=== PATIENT | male | born 1940 | race Caucasian/White ===

== ENCOUNTER 2022-09-12 07:45 | Outpatient (CLI) | payer MEDICARE, SELFPAY | END 2022-09-12 07:46 | disposition home or self-care (01) | LOC: NFLDREF 11:41 | PROVIDERS: PCP Family Medicine; Referring Provider Family Medicine; Visit Provider Family Medicine | DX: Z00.00 Encounter for general adult medical examination without abnormal findings (principal); E78.5 Hyperlipidemia, unspecified; I10 Essential (primary) hypertension; Z12.5 Encounter for screening for malignant neoplasm of prostate | CPT/HCPCS: 80053; 80061; 84153 ==

== ENCOUNTER 2023-10-09 07:36 | Outpatient (CLI) | payer MEDICARE, SELFPAY | END 2023-10-09 07:37 | disposition home or self-care (01) | LOC: NFLDREF 10-13 00:37 | PROVIDERS: PCP Family Medicine; Referring Provider Family Medicine; Visit Provider Family Medicine | DX: E78.5 Hyperlipidemia, unspecified (principal); I10 Essential (primary) hypertension; Z12.5 Encounter for screening for malignant neoplasm of prostate | CPT/HCPCS: 80053; 80061; G0103 ==

== ENCOUNTER 2023-12-18 07:09 | Outpatient (CLI) | payer MEDICARE, SELFPAY ==
--- NOTE | 2023-12-18 09:29 | W.ANESCHARGE ---
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
--- NOTE | 2023-12-18 09:39 | W.ANESCHARGE ---
Anesthesia Charges Start Date/Time Anesthesia Start Date: 12/18/23 Anesthesia Start Time: 08:08 Stop Date/Time Anesthesia Stop Date: 12/18/23 Anesthesia Stop Time: 09:25 Summary Extremes of Age - Over 70 or under 1: MDA
== END 2023-12-18 07:10 | disposition home or self-care (01) ==
LOC: OP CLINIC 07:10
PROVIDERS: PCP Family Medicine; Visit Provider Surgery
DX: Z12.11 Encounter for screening for malignant neoplasm of colon (principal); D12.3 Benign neoplasm of transverse colon; D49.0 Neoplasm of unspecified behavior of digestive system; K56.690 Other partial intestinal obstruction; K57.30 Diverticulosis of large intestine without perforation or abscess without bleeding; Z86.0100 Personal history of colon polyps, unspecified
CPT/HCPCS: 00811; 45380; 45381; 45385; 88305; 99100; J2704

== ENCOUNTER 2023-12-25 07:30 | Outpatient (CLI) | payer MEDICARE, SELFPAY ==
--- NOTE | 2023-12-25 08:00 | CRLHL7_ITS ---
For Patients: As a result of the Century Cures Act, medical imaging exams and procedure reports are released immediately into your electronic medical record. You may view this report before your referring provider. If you have questions, please contact your health care provider. CT CHEST, ABDOMEN AND PELVIS WITH CONTRAST, 12/25/2023 INDICATION: New sigmoid cancer. TECHNIQUE: Contrast-enhanced CT of the chest, abdomen and pelvis. 96 cc nonionic Isovue-370 administered. COMPARISON: None. FINDINGS: CT chest: Nearly 7 mm subpleural pulmonary nodule lateral left lower lobe of the lung image 87 series 3, nonspecific. Minimal ground-glass opacity subpleural posterior right lower lobe of the lung image 56 series 3 likely postinfectious or postinflammatory. Few calcified pleural plaques bilaterally, left more so than right. No thoracic lymphadenopathy. Vascular calcification within the thoracic aorta and coronary artery distribution. CT abdomen and pelvis: Small esophageal hiatal hernia. The liver is negative for masses or biliary dilatation. No splenomegaly. The pancreas and adrenal glands are unremarkable. Probable tiny stone in the gallbladder, image 163 series 2. Renal cysts bilaterally without solid masses or obstruction. No renal stone. Dense vascular calcification within the abdominal aorta and iliac arteries. Normal appendix. Biopsy clips ascending colon. Enhancing thick-walled sigmoid colonic mass left lower quadrant image 209 series 2. Adjacent, somewhat suspicious 1 cm lymph node image 208 series 2. No ascites. No bowel obstruction. Enlarged prostate gland. The seminal vesicles are unremarkable. Mildly thick-walled urinary bladder. Both inguinal regions are unremarkable. The included skeleton is negative for acute fractures. No lytic or blastic lesions. Scattered hypertrophic and degenerative change of the spine. IMPRESSION: 1. Sigmoid colonic mass with a 1 cm regional lymph node. 2. 6-7 mm subpleural pulmonary nodule lateral left lower lobe of the lung is indeterminate. 3. The liver is negative for masses or biliary dilatation. There is minor focal fatty infiltration along the falciform ligament. 4. Tiny calcified gallstone. Renal cysts. Dense arterial vascular calcification in the chest, abdomen and pelvis. 5. Prostatic enlargement. Please note that all CT scans at this facility use dose modulation, iterative reconstruction and/or weight-based dosing when appropriate to reduce radiation dose to as low as reasonably achievable. Basil Bansal M.D. Diagnostic/Nuclear Medicine Radiologist [email or web address] Transcribed: 11:33 am DW/Dictated by: Basil Bansal MD @ 12/25/2023 11:13:00 AM (Electronically Signed)
[2023-12-25 08:03] LABS: Creatinine* 0.9 mg/dL (0.5-1.5); Estimated Glomerular Filt Rate 86 ml/min
== END 2023-12-25 07:31 | disposition home or self-care (01) ==
LOC: CT 07:32
PROVIDERS: PCP Family Medicine; Visit Provider Surgery
DX: K63.89 Other specified diseases of intestine (principal); R22.2 Localized swelling, mass and lump, trunk; R91.8 Other nonspecific abnormal finding of lung field; K80.20 Calculus of gallbladder without cholecystitis without obstruction; N40.0 Benign prostatic hyperplasia without lower urinary tract symptoms
CPT/HCPCS: 36415; 71260; 74177; 82565; Q9967

== ENCOUNTER 2023-12-28 13:12 | Outpatient (CLI) | payer MEDICARE, SELFPAY | END 2023-12-28 13:13 | disposition home or self-care (01) | LOC: NFLDREF 13:13 | PROVIDERS: PCP Family Medicine; Visit Provider Surgery | DX: D12.5 Benign neoplasm of sigmoid colon | CPT/HCPCS: 82378 ==

== ENCOUNTER 2024-01-18 14:59 | Outpatient (CLI) | payer MEDICARE, SELFPAY ==
--- NOTE | 2024-01-18 15:30 | PE_ITS ---
[facility] [address] [facility] [address] Phone:?[phone] Fax:?[phone] Referring Physician Information: Digna Vang M.D. [address] [facility] [address] Phone:?[phone] Fax:?[phone] Patient:?Vladimir Alegria D.O.B:?1940 Sex:?Male Phone:?[phone] [facility] MRN:?[id number] Exam Date:?01/18/2024 EXAM:?PET EYES TO THIGHS, CANCER INITIAL STAGING CLINICAL INFORMATION: Colorectal cancer, sigmoid colon, presurgery TECHNICAL INFORMATION: Helical acquisition of data was obtained from the orbits to the upper thighs with reconstruction of 3.75 mm thick images at 3.[address] data was used for attenuation correction. PET scanning was performed through the same anatomic range 60 minutes following administration of 12.92 mCi of 18-FDG delivered intravenously. The patient's glucose at the time of the injection was 70 mg/dL. PET, CT and PET/CT fusion images are interpreted using a computer viewing workstation. PET, CT and PET/CT fusion images were archived and saved in the patient's permanent medical record. COMPARISON: CT chest, abdomen and pelvis 12/25/2023 INTERPRETATION: Mediastinal blood pool activity: 2.71 Background liver parenchymal uptake: 3.35 Head and Neck: There are no abnormal hypermetabolic foci within the head or neck. There is physiologic uptake in the intracranial soft tissues. Chest: There are no abnormal hypermetabolic foci within the chest. No lymphadenopathy detected. A stable 6 mm nodule in the left lower lobe (series 202 image 144). No associated FDG avidity. Stable 3 mm nodule in the left upper lobe (series 202 image 90). No new or enlarging lung nodules. Similar subpleural reticulation in the superior segment right lower lobe. Scattered bilateral calcified pleural plaque, left greater than right. Coronary artery atherosclerosis. Atherosclerosis of the thoracic aorta. Abdomen and Pelvis: Focal soft tissue fullness in the proximal sigmoid colon measuring 4.0 x 3.3 cm (series 202 image 234) with associated FDG avidity and an SUV max of 22.99 There is physiologic excretion of radiotracer in the urine and bowel. A few more discrete foci of uptake in the hepatic flexure colon (fused image 29) and ascending colon (fused image 215). The focus of uptake in the ascending colon appears to be associated with a biopsy clip with an SUV max of 7.63. There is misregistration artifact in the region of the inferior liver and the focus of uptake in the right upper quadrant region is favored to be within the hepatic flexure colon rather than the adjacent liver. Additionally, no lesion is visualized in the region on the comparison CT abdomen/pelvis. This focus has an SUV max of 7.56 and is indeterminate, possibly related to recent polypectomy or diverticula. No discrete mass is visualized. No abdominal or pelvic lymphadenopathy. Bilateral renal cysts measuring up to 4.3 cm in the superior pole of the right kidney. A 2 mm calyceal stone in the lower pole of the right kidney. No hydronephrosis. Aortoiliac atherosclerosis. Prostatomegaly. Colonic diverticulosis. Skeleton, Musculature, and Integument: No abnormal hypermetabolic foci within the skeleton. No emily osteoblastic or osteolytic disease. CONCLUSION: * A 4 cm hypermetabolic mass in the proximal sigmoid colon which is compatible patient's known primary neoplasm. * No definite evidence of metastatic disease. * A few stable lung nodules measuring up to 6 mm. Attention on follow-up imaging. * A few foci of uptake in the ascending and hepatic flexure colon. Findings may be related to provided history of recent polypectomy or small diverticula in the region. Correlate with colonoscopy findings. As conservative management, a short interval follow-up CT abdomen/pelvis could be considered in 3 months to ensure stability. Electronically signed on 01/23/2024 9:06:00 AM by Danny Ramirez D.O
== END 2024-01-18 15:00 | disposition home or self-care (01) ==
LOC: RAD 15:00
PROVIDERS: PCP Family Medicine; Visit Provider Surgery
DX: C18.7 Malignant neoplasm of sigmoid colon (principal); R91.1 Solitary pulmonary nodule
CPT/HCPCS: 78815; A9552

== ENCOUNTER 2024-01-29 08:54 | Outpatient (CLI) | payer MEDICARE, SELFPAY | END 2024-01-29 08:55 | disposition home or self-care (01) | LOC: NFLDREF 08:56 | PROVIDERS: PCP Family Medicine; Visit Provider Family Medicine | DX: I10 Essential (primary) hypertension (principal); Z01.818 Encounter for other preprocedural examination | CPT/HCPCS: 80048 ==

== ENCOUNTER 2024-01-30 06:13 | Inpatient (IN) | payer MEDICARE, SELFPAY ==
[2024-01-30] VITALS (24 sets, daily range): BP systolic 122–151; BP diastolic 55–85; PULSE 52–98; RESP 14–18; TEMP 36.3–36.8; O2SAT 92–98; BMI 27.1
[2024-01-30] MEDS: LACTATED RINGERS 1000 ML 1,000 ML 100 ML IV (07:02)
[2024-01-30] MEDS: SODIUM CHLORIDE 0.9 % (FLUSH) 10 ML SYRINGE IVF (07:02)
--- NOTE | 2024-01-30 07:42 | W.PM.H&PU ---
History & Physical Update History & Physical Update H&P Reviewed and patient assessed: No changes noted
[2024-01-30] MEDS: ERTAPENEM 1 GM inj IVPB (07:55)
[2024-01-30] MEDS: BUPIVACAINE 0.25% 30 ML INJECTION (08:51)
--- NOTE | 2024-01-30 09:13 | W.ANESCHARGE ---
Anesthesia Charges Start Date/Time Anesthesia Start Date: 01/30/24 Anesthesia Start Time: 07:42 Stop Date/Time Anesthesia Stop Date: 01/30/24 Anesthesia Stop Time: 13:27 Summary Extremes of Age - Over 70 or under 1: MDA
--- NOTE | 2024-01-30 09:15 | P.NB_ITS ---
Nerve Block Nerve Block Time Seen by Provider: 07:52 Date Seen: 01/30/24 Type of block requested by surgeon for post-operative analgesia: TAP Side: bilateral Time out performed: Yes Verification of patient name: Yes Verification of date of : Yes Site marking: site marked Name of person performing procedure: Que Continuous monitoring Was continuous monitoring of O2 sat, B/P, hand outside cutter, recorded every 15 minutes?: Yes Procedure Checklist: sterile prep, needles and gloves Ultrasound guided. Images saved: Yes Medications given in 5ml increments after negative aspiration: Marcaine %: 0.25 mL: 30 Needle gauge: 20 and Exparel mL: 10 Patient tolerated procedure well: Yes Additional comments: Needle noted between internal oblique and transversus abdominus. Local spread visualized Block Charges Block Charge (with Pro Fee): TAP Bilateral Use of Ultrasound Machine for Block: Yes- US Guidance/pain block
--- NOTE | 2024-01-30 12:15 | SUR.OPER ---
patient's updated on progress of the procedure and procedure going well by charge nurse in lobby area.
--- NOTE | 2024-01-30 13:31 | W.ANESCHARGE ---
Anesthesia Charges Start Date/Time Anesthesia Start Date: 01/30/24 Anesthesia Start Time: 07:42 Stop Date/Time Anesthesia Stop Date: 01/30/24 Anesthesia Stop Time: 13:27
--- NOTE | 2024-01-30 13:48 | PM.GSPRC ---
Operative Note Date of procedure: 01/30/24 Pre-op diagnosis: 1. 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 Post-op diagnosis: Same Type of Procedure: 1. Laparoscopic left hemicolectomy. 2. Laparoscopic mobilization of the splenic flexure. 3. I SPY injection. Indications: 83-year-old male underwent a colonoscopy and was found to have a partially obstructing proximal sigmoid mass. This was biopsied on biopsy returned as tubulovillous adenoma with high-grade dysplasia. Appearance of the mass was concerning for adenocarcinoma. Patient was then seen by my surgical partner in clinic of laparoscopic colectomy was recommended. See her note for more details. Procedure Description: After discussing the risks and benefits of the procedure, the patient signed informed consent.? The operative site was marked and the patient was brought to the operating room and placed on the operating table in supine position.? Patient was intubated by Anesthesia. He was placed in the modified lithotomy position with all pressure points padded. TAP blocks were administered by Anesthesia. Thakur catheter was placed under sterile conditions.? The operative site was then prepped and draped in the usual sterile fashion.? A time-out was then performed. The abdomen was entered in the left upper quadrant using a Visiport technique. The abdominal wall layers were visualized and the abdomen was entered. The abdomen was insufflated with carbon dioxide. No intra-abdominal injury was noted in the left upper quadrant. We then placed additional laparoscopic ports under direct visualization. A 5 mm port was placed above the umbilicus, slightly to the right of the umbilicus, and 12 mm port was placed in the right lower quadrant. The patient was placed in the Trendelenburg position with the left side up. The sigmoid colon was identified And tattoo was identified In the proximal sigmoid colon. A firm mass was palpable just proximal to the tattoo, and was in the descending colon. We first proceeded with medial mesenteric dissection. This was done with the Harmonic scalpel. During this part of the procedure I assisted with retraction and mobilization. The inferior mesenteric artery was identified and we clearly identified the left colic branch at its takeoff from the inferior mesenteric artery. Two branches were identified immediately after the takeoff from DANITZA. Since we did not identify the left ureter at this point, decision was made to proceed with lateral dissection. The adhesions of sigmoid colon to the lateral abdominal wall were taken down with harmonic scalpel. This was carried distally towards the pelvis and proximally towards the spleen. At this point the left ureter was identified and care was taken not to injure it. During this part of the procedure I assisted with retraction and mobilization. The dissection was carried towards the spleen and we proceeded with mobilization of splenic flexure. The splenic flexure of the large intestine was mobilized with Harmonic scalpel. The omentum overlying the splenic flexure was divided with Harmonic scalpel And this allowed us to reflect the splenic flexure and transverse colon caudally. This dissection was carried towards the stomach by dividing the gastrocolic ligament, and extended to the proximal transverse colon. When the descending colon and the splenic flexure were mobile to allow for tension-free anastomosis, we then turned our attention to the sigmoid colon. The sigmoid colon was redundant. The Proxima sigmoid colon mesentery was further skeletonized with Harmonic scalpel. The vascular pedicle that was previously identified was again seen and both branches of the left colic artery just distal to its takeoff from the inferior mesenteric artery were diivided with Endo-ZAKIA stapler. Left colic vein was identified just cranial to the divided artery. This was skeletonized with the Harmonic scalpel and divided with vascular load of Endo-ZAKIA stapler. During this part of the dissection, I assisted with visualization and retraction. The staple lines were examined, and no bleeding was seen. Given the location of the tumor in the descending colon and redundant sigmoid colon, we elected to proceed with left hemicolectomy through a left paramedian incision and end to end anastomosis. The laparoscopic instruments were removed from the abdomen. The abdomen was deflated. A left paramedian skin incision was made just lateral to the umbilicus. This was done with a scalpel. Subcutaneous fat was divided with cautery until anterior fascia was identified. Anterior fascia was divided with cautery as well. Rectus muscle was divided with cautery. Bleeding was seen from the muscle fibers, and this was controlled with cautery. The midline peritoneum was then grasped and the abdomen was entered with cautery. This peritoneal incision was then extended laterally and medially. During this part of the procedure, I assisted with retraction and visualization. A medium size Baudilio retractor was placed into the incision. The previously grasped decent colon was identified, and exteriorized. The descending colon was very mobile. Colonic mesentery was then further divided to skeletonize the proximal and distal ends of the colon elected for division and anastomosis. We then used indocyanine green injection to verify good blood flow to the proximal colon and distal colon. The perfused colonic demarcation was clearly seen. The distal colon at the level of the proximal sigmoid was then clamped with a Elizabeth clamp and divided with a scalpel. The open end of the sigmoid colon was then grasped with Babcocks. The proximal end of the colon at the level of proximal descending at the splenic flexure was also grasped with kocker clamp. The colon was divided with a scalpel. The specimen was passed off the field, and sent to pathology with epiploic fat that was previously excised adjacent to the descending colon. The open end of the descending colon was grasped with [place] clamps as well. No stool was noted in the lumen, and no stool was spilled into the incision. We then proceeded with a hand-sewn end-to-end colo-colonic anastomosis. We made sure that colonic mesentery was not twisted. The serosa of the back wall of the open ends of the colon was reapproximated with silk Lembert sutures. The mucosa was then closed with two running 3-0 Vicryl sutures. The anterior wall of the colon was then reapproximated with silk Lembert sutures. The mesenteric defect was not closed. During this part of the procedure I assisted with retraction and visualization. The anastomosis was patent to palpation and was well perfused. No bleeding was identified near anastomosis. The anastomosis was then placed into the abdomen. The Baudilio retractor was removed. Previously placed towels that were covering all laparoscopic instruments were also removed. Surgeons and assistants changed gloves. We then proceeded with using clean tray for incisional closure. The peritoneum of paramedian incision was then closed with a running Vicryl suture. The fascia of paramedian incision was closed with 2 running PDS sutures. During this part of procedure I assisted with retraction and visualization. The abdomen was then insufflated with carbon dioxide. Anastomosis was perfused and lying on the left side of the abdomen. The mesentery was not twisted. No bleeding was identified in the surgical field. The right lower quadrant 12 mm port fascia was closed with 0-0 Vicryl suture using Theo-Yahir needle. All laparoscopic ports were removed under direct visualization. The subcutaneous fat of the paramedian incision was then reapproximated in layers with interrupted Vicryl sutures. The skin of all incisions was closed with 4-0 Monocryl stitch. Steri-Strips and sterile dressings were placed over the incisions. All counts were correct at the end of the case. ? The patient was then woken and transported to the recovery area in stable condition. ? The patient tolerated the procedure well. Findings: Tattoo distal to tumor was identified and was in the proximal sigmoid colon. A firm mass was palpable in the descending colon. The descending colon was removed and hand-sewn end-to-end colocolonic anastomosis was created. Anesthesia: GETA Surgeon: Digna Vang MD Co-Surgeon: Farrah Arevalo MD Estimated blood loss (mL): 25 Additional Specimen Information: 1. Left colon. Condition: stable Disposition: PACU
--- NOTE | 2024-01-30 14:02 | PM.GSPRC ---
Operative Note Date of procedure: 01/30/24 Pre-op diagnosis: Advanced tubulovillous adenoma, left colon Post-op diagnosis: Same Type of Procedure: 1. Laparoscopic left hemicolectomy 2. Laparoscopic mobilization of splenic flexure 3. ICG ispy evaluation of perfusion Indications: Patient is an 83-year-old male who underwent a screening colonoscopy with evidence of a partially obstructing mass in the proximal sigmoid. 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 A preoperative CT chest/abdomen/pelvis were obtained, as well as a PET-CT with no clear evidence of metastatic disease. After discussing different treatment regimens with the patient, as well as risks and benefits of surgery the patient has decided to pursue surgical intervention. Risks included but was not limited to: Bleeding, infection, risk of damage to surrounding structures, possible need for additional procedures, possible need to convert to an open operation and postoperative complications such as pneumonia, pulmonary emboli or AR. All questions and concerns were addressed with the patient agreeing to proceed. Procedure Description: After discussing the risks and benefits of the procedure, the patient signed informed consent.? The operative site was marked and the patient was brought to the operating room and placed on the operating table in semi-lithotomy position, arms tucked.? Care was taken to pad the patient's pressure points.?? The patient was then intubated by anesthesia.?? Bilateral tap blocks were performed by Anesthesia. A Thakur was placed under sterile conditions. The operative site was then prepped and draped in the usual sterile fashion.? A time-out was then performed. A 5 mm Visiport was used to enter the abdomen in the left upper quadrant. The abdomen was then insufflated with CO2 and briefly surveyed with no evidence of injury. Additional ports were placed just above the umbilicus, as well as 2 within the right lower quadrant under direct visualization. The patient was then placed Trendelenburg with left side up. The small bowel was gently moved to the right side. The sigmoid colon had evidence of circumferential tattoo. There were some adhesions to the lateral abdominal wall at this area. With palpation the colon mass was easily identified approximately 5 cm proximal to the tattooed area. Dr. Arevalo assisted with retraction of the colon towards the anterior wall, putting the mesentery under traction. I used the Harmonic device to score the peritoneum of the sigmoid mesentery and carried the dissection caudad and cephalad. Care was taken to dissect through the mesenteric fat until a vascular pedicle was identified coming off of the aorta and branching distally towards the specimen. This was identified as the DANITZA, left colic and sigmoid arteries. Prior to transection we continued our dissection laterally. We took down the adhesions of the sigmoid from the lateral abdominal wall. The colon was retracted medially by Dr. Arevalo while I continued dissecting the specimen away from the abdominal wall. The left ureter was easily identified during this portion of the procedure and care was taken not to injure it. A small arterial bleed was identified just inferior to the ureter, this was controlled with a 5 mm clip. At this point the previous medial dissection was identified. The left colic artery and sigmoid artery were seen going directly into the specimen. Two 30mm vascular staple loads were used to individually ligate the arteries. A large vein was also identified running posterior to the left colic and was transected in a similar fashion. The white line of Toldt was then incised and dissection carried up towards the splenic flexure. The patient was placed in reverse Trendelenburg position. The splenic colic ligaments were carefully dissected free and ligated with the Harmonic device, taking care not to place traction on the spleen. The overlying omentum of the transverse colon was incised and we entered into the lesser sac. This was opened further to mid transverse. At the completion of this dissection the colon was very mobile and able to lay into the pelvis without tension. A grasper was placed just distal to the tumor on a piece of epiploic fat. At this point we converted to the open portion of the procedure in order to perform an extracorporeal anastomosis. A left lower quadrant transverse incision was made with a 15 blade scalpel. Dissection was carried through subcutaneous tissue with cautery. The anterior fascia was identified and incised. The underlying muscle was transected with cautery. There was a small amount of bleeding from the muscle edges, which was controlled with cautery. The peritoneum was sharply incised and the incision extended medial and lateral. A medium Baudilio wound retractor was placed within the incision. The underlying colon with the grasper in place was identified and grabbed with Babcocks. The laparoscopic grasper was removed and all laparoscopic equipment covered with towels or placed on the back table. The colon was easily externalized through the left lower quadrant opening. An area was identified proximal and distal to the palpated tumor for transection. The colon was dissected free of fat from these areas. Some additional ligation of the mesentery was needed, which was done with the harmonic device and vicryl ties for larger vessels. Prior to transection of the colon a laparoscopic iSPY camera was brought onto the field. Anesthesia injected IV indocyanine green and we were able to identify perfusion of the colon. The sites on the left colon that were previously identified for transection were well perfused. A large Elizabeth was then placed proximal and distal on the colon, ensuring adequate margins from the tumor. The colon was sharply incised and grasped with Ashley's. The specimen was then able to be passed off to the back table to be sent to pathology. The distal and proximal ends of the colon wer lined up, for an end-to-end anastomosis. 3-0 silk Lembert stitches were placed posteriorly between the 2 specimens, lining up the mesenteric ends. Care was taken to ensure no twisting of the mesentery. Once the posterior colonic wall of the specimen was lined up the mucosa was brought together with 2 running 3 0 Vicryl sutures. 3-0 silk Lembert sutures were then placed circumferentially, ensuring a 2 layer closure. The lumen was palpated and patent. The mesenteric defect was left open. The specimen was then placed back into the abdomen. All dirty equipment was removed off of the operative field at this point. The peritoneum was closed with running 3-0 Vicryl. The anterior fascia was closed with 2 running 0 PDS sutures. A moist gauze was placed within the incision and the abdomen was insufflated with CO2. Laparoscopic equipment was brought back into the operative field. The anastomosis was identified. The mesentery was not twisted and everything appeared well perfused. No evidence of bleeding. The 12 mm port was closed with an 0 Vicryl stitch via the Theo-Yahir. Laparoscopic ports were removed. The port incisions were closed with 4-0 Monocryl. The left lower quadrant incision was closed in layers with interrupted 3 0 Vicryl and running 4-0 Monocryl suture. Sterile dressings were then applied. ? The patient was then woken and transported to the recovery area in stable condition. ? The patient tolerated the procedure well. Findings: Left colonic mass. Anesthesia: GETA Surgeon: Digna Vang MD Estimated blood loss (mL): 25 Additional Specimen Information: Left colon Condition: stable Disposition: PACU
[2024-01-30] MEDS: 0.9 % SODIUM CHLORIDE 1000 ml 1,000 ML 125 ML IV (18:18)
--- NOTE | 2024-01-30 18:56 | PC.NURSE ---
end of shift. pt has been pleasant. abd pain has been 1-3 and he did not want anything for it so far. IV is patent. plexis are on. IS to 1500. waterman is patent. he is drinking and eating. he as lap incision and a larger incision that is steri stripped. active ice to the abd. will monitor.
[2024-01-31] VITALS (7 sets, daily range): BP systolic 136–163; BP diastolic 65–88; PULSE 65–72; RESP 16–18; TEMP 36.6–36.8; O2SAT 92–94
[2024-01-31] MEDS: 0.9 % SODIUM CHLORIDE 1000 ml 1,000 ML 125 ML IV (02:00)
[2024-01-31 06:52] LABS: Basophils Percent Auto 0.1 % (0.0-3.0); Hematocrit 43.5 % (37.0-53.0); Hemoglobin* 14.4 gm/dL (13.5-17.5); Immature Granulocytes Pct Auto 0.2 %; Lymphocytes Percent Auto 8.9 % (20-44); Mean Corpuscular HGB Conc 33 gm/dL (32-36); Mean Corpuscular Hemoglobin 32 pg (26-34); Mean Corpuscular Volume 96 fL (80-100); Monocytes Percent Auto 10.6 % (0.0-11.0); Neutrophils Percent Auto 80.2 % (42.0-72.0); Platelet Count* 243 K/uL (140-440); RDW Coefficient of Variation % 12.3 % (11.5-15.5); Red Blood Count 4.54 m/uL (4.30-5.90); White Blood Count* 11.14 K/uL (4.50-11.00)
--- NOTE | 2024-01-31 06:57 | PC.NURSE ---
Pt alert, oriented and vitally stable. Pt has had no pain throughout shift. 3 lap sites and 1 (3-4 inch) incision, with scant amounts of blood, otherwise dry and intact. Ice pack to op sites and pillow ready to brace as needed. Pt states flatus present, bowel sounds active. Pt appears to be resting comfortably, call light within reach.?
[2024-01-31 07:13] LABS: Chloride* 106 mmol/L (96-114); Potassium* 3.9 mmol/L (3.6-5.1); Sodium* 137 mmol/L (135-149)
[2024-01-31 07:16] LABS: Anion Gap 6 mEq/L (7-15); Blood Urea Nitrogen* 16 mg/dL (7-30); Calcium* 8.4 mg/dL (8.4-10.6); Carbon Dioxide* 25 mmol/L (20-32); Creatinine* 0.8 mg/dL (0.5-1.5); Estimated Glomerular Filt Rate 89 ml/min; Glucose* 100 mg/dL (60-115)
[2024-01-31 07:18] LABS: Slide Review Reflex No
--- NOTE | 2024-01-31 09:23 | PM.GSPN ---
Subjective Subjective Date Seen: 01/31/24 Interval history: Patient is doing well this morning. Minimal pain. Has not yet gotten up to walk the halls. Is passing flatus. Also reports frequent hiccups and burping. Has been taking clear liquids without nausea or vomiting. Has been feeling hungry this morning. No concerns. Exam Narrative: Exam Narrative: Gen: aler and oriented, NAD Abd: soft, non tender, incisions with steri strips in place c/d/i. Const: Vital Signs, click to edit/add: Vital Signs - 24 hr 01/30/24 13:23 01/30/24 13:30 01/30/24 13:35 Temperature 97.4 F L Pulse Rate 63 65 61 Pulse Rate [Pulse Oximeter] Respiratory Rate 18 16 18 Blood Pressure 136/63 137/60 139/64 Blood Pressure [Ri ght Arm] Pulse Oximetry 94 93 93 Oxygen Delivery Me thod Room Air Room Air Room Air 01/30/24 13:40 01/30/24 13:45 01/30/24 13:50 Temperature 97.5 F L Pulse Rate 63 61 61 Pulse Rate [Pulse Oximeter] Respiratory Rate 16 18 14 Blood Pressure 122/85 127/63 133/67 Blood Pressure [Ri ght Arm] Pulse Oximetry 95 95 95 Oxygen Delivery Mi thod Room Air Room Air Room Air 01/30/24 13:55 01/30/24 14:00 01/30/24 14:02 Temperature 97.3 F L 97.3 F L 97.3 F L Pulse Rate 59 L 59 L Pulse Rate [Pulse Oximeter] 61 Respiratory Rate 16 16 16 Blood Pressure 134/62 134/62 Blood Pressure [Ri ght Arm] 131/68 Pulse Oximetry 94 94 94 Oxygen Delivery Mi thod Room Air Room Air Room Air 01/30/24 14:02 01/30/24 14:15 01/30/24 14:21 Temperature 97.3 F L 97.3 F L Pulse Rate 61 53 L Pulse Rate [Pulse Oximeter] Respiratory Rate 16 16 Blood Pressure 131/68 132/64 Blood Pressure [Ri ght Arm] Pulse Oximetry 94 95 94 Oxygen Delivery Mi thod Room Air Room Air Room Air 01/30/24 14:30 01/30/24 14:48 01/30/24 15:00 Temperature Pulse Rate 54 L 54 L 54 L Pulse Rate [Pulse Oximeter] Respiratory Rate 16 16 16 Blood Pressure 136/70 134/61 145/64 H Blood Pressure [Ri ght Arm] Pulse Oximetry 98 97 97 Oxygen Delivery Me thod Room Air Room Air Room Air 01/30/24 15:15 01/30/24 15:33 01/30/24 16:04 Temperature Pulse Rate 52 L 57 L 59 L Pulse Rate [Pulse Oximeter] Respiratory Rate 16 16 16 Blood Pressure 151/62 H 143/61 H 139/55 L Blood Pressure [Ri ght Arm] Pulse Oximetry 95 94 94 Oxygen Delivery Me thod Room Air Room Air Room Air 01/30/24 16:35 01/30/24 17:00 01/30/24 18:00 Temperature 97.4 F L Pulse Rate 60 67 74 Pulse Rate [Pulse Oximeter] Respiratory Rate 16 16 16 Blood Pressure 138/61 138/65 138/60 Blood Pressure [Ri ght Arm] Pulse Oximetry 94 94 97 Oxygen Delivery Mi thod Room Air Room Air Room Air 01/30/24 19:00 01/30/24 20:00 01/30/24 23:00 Temperature Pulse Rate 98 74 Pulse Rate [Pulse Oximeter] Respiratory Rate 16 18 16 Blood Pressure 131/57 L 133/76 Blood Pressure [Ri ght Arm] Pulse Oximetry 93 94 Oxygen Delivery Me thod Room Air 01/30/24 23:00 01/30/24 23:00 01/31/24 03:00 Temperature 98.3 F 98.1 F Pulse Rate Pulse Rate [Pulse Oximeter] 73 70 Respiratory Rate 16 18 16 Blood Pressure Blood Pressure [Ri ght Arm] 124/63 136/88 Pulse Oximetry 94 92 94 Oxygen Delivery Me thod Room Air Room Air Room Air 01/31/24 07:00 Temperature 97.9 F Pulse Rate Pulse Rate [Pulse Oximeter] 72 Respiratory Rate 18 Blood Pressure Blood Pressure [Ri ght Arm] 139/66 Pulse Oximetry 93 Oxygen Delivery Me thod Room Air Labs/Imaging Labs Labs: Mild leukocytosis 11 post op. Hgb 14.4. BMP WNL Progress Note:A&P Assessment and plan (1) Mass of colon: Status: Acute Assessment and Plan: Patient is POD1 Left hemicolectomy with end to end hand sewn anastomosis. Doing well post op. Does report passing flatus, but with frequent hiccups/burping will have patient stay on clear liquid diet. Encouraged ambulation. Plan - stop IVF, clear liquids - encourage ambulation - SCDs, lovenox for DVT ppx - IV and po pain meds as needed - patient requesting simethicone and PPI this morning - columba removed this am
[2024-01-31] MEDS: SIMETHICONE 80 MG TAB.CHEW 160 MG PO ×2 (09:35→13:21)
[2024-01-31] MEDS: ONDANSETRON 2 MG/ML inj IVP (13:22)
--- NOTE | 2024-01-31 19:07 | PC.NURSE ---
Pleasant and cooperative, VSS, L lower abdominal incision site CDI with steri strips. 3 other lap sites with steri strips as well. The patient is noted to be belching and hiccuping most of the day, encouraged chewing gum. He reported that this helped a lot, 2 loose BMs today. Thakur was removed and the patient has voided. Up walking independently with his 6x today. Call light within reach, no N/V or pain. Rosie QUINTERO BSN
[2024-01-31] MEDS: ENOXAPARIN 40 MG/0.4 ML INJ SUBCUT (21:31)
[2024-02-01 03:00] VITALS: BP 144/66; PULSE 55; RESP 16; TEMP 36.9; O2SAT 93
[2024-02-01] MEDS: OMEPRAZOLE 20 MG CAPSULE DR PO (06:13)
--- NOTE | 2024-02-01 06:32 | PC.NURSE ---
Pt alert, oriented and vitally stable. Pt has had no pain throughout shift. 3 lap sites and 1 (3-4 inch) incision, with scant amounts of blood, otherwise dry and intact. Ice pack to op sites and pillow ready to brace as needed. Pt states flatus present, bowel sounds active. Pt up in room independently and was encouraged to walk earlier in the shift, though refused. Pt appears to be resting comfortably, call light within reach.?
[2024-02-01 07:00] VITALS: BP 142/68; PULSE 64; RESP 16; TEMP 37.1; O2SAT 93
[2024-02-01] MEDS: AMLODIPINE 10 MG TABLET PO (08:22)
[2024-02-01] MEDS: CHLORTHALIDONE 25 MG TABLET PO (08:22)
[2024-02-01] MEDS: SIMVASTATIN 20 MG TABLET PO (08:22)
[2024-02-01] MEDS: lisinopriL 20 MG TABLET PO (08:22)
--- NOTE | 2024-02-01 10:54 | PM.GSPN ---
Subjective Subjective Date Seen: 02/01/24 Interval history: Patient is doing well this morning. He continues to pass gas and has started to have bowel movements. Continues to complain of hiccups and a feeling of reflux, but denies any nausea or vomiting. He tolerated clear liquids yesterday and is feeling hungry this morning. He has been ambulating without difficulty. Exam Narrative: Exam Narrative: General: Alert and oriented, no acute distress Respiratory: Equal breath rise bilaterally, maintained on room air CV: Well perfused Abdomen: Steri-Strips in place abdomen soft, appropriately tender over incision sites. Right lower quadrant incision was some surrounding bruising, no current concern for infection. Const: Vital Signs, click to edit/add: Vital Signs - 24 hr 01/31/24 11:00 01/31/24 15:00 01/31/24 15:00 Temperature 97.9 F 98.2 F Pulse Rate [Pulse Oximeter] 65 69 Respiratory Rate 18 18 Blood Pressure [Ri ght Arm] 163/73 H 144/65 H Pulse Oximetry 93 93 93 Oxygen Delivery Me thod Room Air Room Air Room Air 01/31/24 19:00 01/31/24 23:00 01/31/24 23:00 Temperature 98.3 F Pulse Rate [Pulse Oximeter] 68 68 Respiratory Rate 18 18 18 Blood Pressure [Ri ght Arm] 147/67 H Pulse Oximetry 92 92 Oxygen Delivery Me thod Room Air Room Air 02/01/24 03:00 02/01/24 07:00 02/01/24 07:00 Temperature 98.5 F 98.8 F Pulse Rate [Pulse Oximeter] 55 L 64 Respiratory Rate 16 16 Blood Pressure [Ri ght Arm] 144/66 H 142/68 H Pulse Oximetry 93 93 93 Oxygen Delivery Me thod Room Air Room Air Progress Note:A&P Assessment and plan (1) Mass of colon: Status: Acute Assessment and Plan: Patient is POD2 Left hemicolectomy with end to end hand sewn anastomosis. Patient doing well. No acute events overnight. Has had return of bowel function. Plan - regular diet - encourage ambulation - SCDs, lovenox for DVT ppx. Will plan to send patient home with 4 week course. - IV and po pain meds as needed Anticipate discharge later this afternoon versus tomorrow.
[2024-02-01 11:00] VITALS: BP 111/64; PULSE 68; RESP 16; TEMP 37; O2SAT 94
--- NOTE | 2024-02-01 18:20 | PC.NURSE ---
Discharge: The patient discharged with his home. 3 abdominal lap sites with a scant amount of serosanguineous fluid. Dry and intact with Steri strips. Left lower abdomen incision has a small amount of blood with steri strips... the patient reports no bloating, hiccups and belching is still frequent. The patient continues to chew gum. No reports of pain, ambulating well. Teach back method was showed regarding Lovenox injections to the patient and his . All questions were answered. Rosie QUINTERO BSN
--- NOTE | 2024-02-05 10:45 | P.DS_ITS ---
DS: Providers Provider Date Seen: 02/01/24 Date of admission: 01/30/24 06:13 Primary care physician: Hansel Magana MD Admitting Clinician: Digna Vang MD Attending Physician on discharge: Digna Vang MD DS: Summary Hospital Course Hospital Course: Patient was admitted after undergoing a laparoscopic left hemicolectomy. He did well postoperatively with no complication. At the time of discharge he was tolerating a regular diet, had return of bowel function, pain was well controlled and he was ambulating independently. Time Spent with Patient Time attestation: Total time spent providing and/or coordinating discharge services: Exam Narrative: Exam Narrative: Please see exam from same date. Discharge Plan Discharge Disposition: Home, Self-Care Date of Admission: 01/30/24 06:13 Attending Provider on Discharge: Digna Vang Primary Care Provider: Hansel Magana Condition: Improved Anticipated Discharge Date/Time: 02/01/24 18:00 Discharge Medications: New hydrocodone-acetaminophen 5-325 mg tablet 1 tab PO Q6H PRN (Reason: pain) Qty: 20 0RF senna 8.6 mg capsule 8.6 mg PO DAILY PRN (Reason: constipation) Qty: 90 0RF enoxaparin [Lovenox] 40 mg/0.4 mL syringe 40 mg subcut DAILY 26 Days Qty: 4 0RF Continued amlodipine 10 mg tablet 10 mg PO DAILY Qty: 90 3RF chlorthalidone 25 mg tablet 25 mg PO DAILY Qty: 90 3RF lisinopril 20 mg tablet 20 mg PO DAILY Qty: 90 3RF simvastatin 20 mg tablet 20 mg PO QPM Qty: 90 3RF Discharge Orders: Discharge Order (Routine); Ordered 02/01/24 Ordered By: Digna Vang Patient Education: Hydrocodone/Acetaminophen (By mouth), Enoxaparin (By injection), Senna (By mouth), Bowel Resection (DC) Additional Instructions: You were prescribed a narcotic pain medication. In addition you may supplement with Tylenol and/or ibuprofen. Be sure to not exceed greater than 4 g of Tylenol in a 24 hour period. While on narcotic pain medicine please take stool softeners. A prescription of stool softeners has been sent to the pharmacy. Stop if having greater than 2 stools per day. You have Steri-Strips dressings in place, allow these to fall off on their own. Okay to shower. Do not soak in a bath or swim for 2 weeks. Follow-up with Dr. Vang in 2-3 weeks. Please call if you are experiencing severe pain, nausea, vomiting, difficulty urinating, fever or not had a bowel movement in 4 days after surgery. Activity Level: No strenuous activity Activity Detail: Activity as tolerated. Avoid strenuous activity. No lifting greater than 20 lb for 6 weeks. Discharge Diet: Regular Follow Up Appointments: Hansel Magana MD [Primary Care Provider] - Digna Vang MD [Staff Physician] - 02/15/24 1:00 pm ([facility] for post surgical follow-up appointment ) Forms: [employer] Info Instructions
--- NOTE | 2024-02-28 13:21 | PM.PROC ---
Procedure Note Date Seen: 01/30/24 Will [facility] bill your pro fee for this procedure?: No Pre-op diagnosis: Adenocarcinoma of the colon Post-op diagnosis: same Procedure: Left hemicolectomy Procedure Description: Please see operative note from same date. Anesthesia: GETA Surgeon: Digna Vang MD, Katya, MD Colon Resection Operation Performed with Curative Intent: Yes Tumor location: Descending colon Extent of colon and vascular resection: Left hemicolectomy-inferior mesenteric and ascending left colic
== END 2024-02-01 16:51 | disposition home or self-care (01) | DRG 331 ==
PROVIDERS: Admitting Provider Surgery; PCP Family Medicine; Visit Provider Surgery
PROC: 0DTN0ZZ Resection of Sigmoid Colon, Open Approach (ICD-10-PCS; CPT 44204; principal; 2024-01-30 07:30)
DX: C18.6 Malignant neoplasm of descending colon (principal); G89.18 Other acute postprocedural pain; R06.6 Hiccough; E78.5 Hyperlipidemia, unspecified; I10 Essential (primary) hypertension; E66.9 Obesity, unspecified; Z68.27 Body mass index [BMI] 27.0-27.9, adult
CPT/HCPCS: 00790; 36415; 64488; 76942; 80048; 81210; 85025; 88309; 88341; 88342; 99100; A9270; C9290; J0330; J0665; J1100; J1335; J1630; J1650; J2405; J2704; J3010; J3490; J7030; J7120

== ENCOUNTER 2024-02-29 08:56 | Inpatient (IN) | payer MEDICARE, SELFPAY ==
[2024-02-29] VITALS (15 sets, daily range): BP systolic 86–142; BP diastolic 46–108; PULSE 62–92; RESP 14–18; TEMP 36.6–37; O2SAT 94–96; BMI 27.5; BMI 26.6
--- OUTSIDE RECORDS SUMMARY | 2024-02-29 08:58 | XMS_ITS | Clinical Summary ---
Author Organization [facility] [employer] [facility] lin Address [address] [facility] [place] [address] Care Team Providers Care Institutional Aide Name Role Phone Unavailable Primary Care Provider Unavailabl e Social History Tobacco Use Types Packs/Day Years Used Date Smoking Tobacco: Never Assessed Sex and Gender Information Value Date Recorded Sex Assigned at Not on file Legal Sex Male 11:21 AM EST Gender Identity Not on file Sexual Orientation Not on file Plan of Treatment Health Maintenance Due Date Last Done Comments Depression: Screening Annual ly using PHQ-2/9 in Adults 18 yrs or above (or HM Modifier)([facility]) 1960 SDOH Screening Reminder: Yelitza loving for all adults ([facility]) 1958 Tobacco Smoking Cessation: i n Adults excluding Women: Behavioral and Pharmacotherapy Interventions ([facility]) 1960 DTaP/Tdap/Td Vaccines ([facility]) (1 - Tdap) 1961 Lipid Screening: Every 5 yrs for Men aged 35+ (or HM Modifier) ([facility]) 1978 Zoster/Shingles Vaccine Seri es Screening: Adults aged 18+ yrs (or HM Modifiers)([facility]) (1 of 2) 1992 RSV Vaccines (1 - 1-dose 60+ series) 2002 Pneumococcal Vaccination Scr eening: Patients 65+ yrs of age ([facility]) (1 of 1 - PCV) 10/24/2007 Flu Vaccination: Ages 65+: Y early High Dose Recommended (or Modifier)([facility]) 09/28/2023 COVID-19 Vaccine Screening: Initial Series and Booster Status ([facility]) ( - 2023- season) 2023 Medical Devices Not on file Insurance [facility]
--- NOTE | 2024-02-29 09:26 | ED.WEAKNESS ---
HPI - Weakness General Time Seen by Provider: 09:27 Date Seen: 02/29/24 Chief complaint: Weakness Stated complaint: weakness Time Seen by Provider: 02/29/24 09:26 Source: patient, EMS, RN notes reviewed and old records reviewed Mode of arrival: EMS Limitations: no limitations History of Present Illness HPI Narrative: This 83-year-old male is brought in by EMS from home where he resides with his . He is brought in for weakness. He had an episode of shaking chills this morning and then went to get out of bed, when he went to get up out of bed, simply collapsed to the floor. There was no injuries, it was not of fall. His notes his appetite has been decreased the last few days, just wanted soft foods. He is having bowel movements but she feels his oral intake for both food and liquids has been diminish the last few days. They have not noted temperature. He is recuperating from a mass removal in his abdomen. 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 He did just complete Lovenox prophylaxis Monday of this week. They have not noted any cough or cold symptoms. He has no headache. He states he just feels terrible but cannot define it further than that. He denies any body aches, no arthralgias, no myalgias. He denies any abdominal pain. No nausea or vomiting currently. No urinary symptoms. Looking in his clinic notes, he was complaining of burping on February 18 on a clinic follow-up. He currently denies any pain. MD Complaint: generalized weakness Related Data Previous Rx's ?Medication ?Instructions ?Recorded amlodipine 10 mg tablet 10 mg PO DAILY #90 tabs 10/10/23 chlorthalidone 25 mg tablet 25 mg PO DAILY #90 tabs 10/10/23 lisinopril 20 mg tablet 20 mg PO DAILY #90 tabs 10/10/23 simvastatin 20 mg tablet 20 mg PO QPM #90 tabs 10/10/23 Allergies Allergy/AdvReac Type Severity Reaction Status Date / Time No Known Allergies Allergy Verified 02/29/24 10:51 Review of Systems Status of ROS: Reports: 6 or more systems reviewed and unremarkable except as noted in History and below 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 He just bought a condo in [place] and spent much of the winter there with his . He has children in the [facility]. He is not sexually active. No regular exercise. HABITS: No tobacco or recreational drug use. Alcohol use is about 12 drinks per week. What is your current living situation?: I presently have a place to live Problems where you live: no known problems Problems where you live details: n/a In the past 12 months, utilities in danger of being shut off: no In past 12 months, lack of transportation kept you from medical appts, meetings, work, or getting things needed for daily living: no In the past 12 mos, have been you worried that your food would run out before you had money to buy more?: never true In the past 12 mos, the food you bought just didn't last and you didn't have money to buy more?: never true Smoking Status: Never smoker How often do you have a drink containing alcohol: 4 or more times a week How many standard drinks containing alcohol do you have on a typical day: 1 or 2 AUDIT-C Alcohol total score: 4 Non-prescribed substance use: denies use Caffeine: Yes (coffee) How often does anyone, including family, friends and others, physically hurt you: never How often does anyone, including family, friends and others, insult or talk down to you: never How often does anyone, including family, friends and others, threaten you with harm: never How often does anyone, including family, friends and others, scream or curse at you: never Exam Const: Vital Signs, click to edit/add: Vital Signs - 24 hr 02/29/24 09:00 02/29/24 09:36 02/29/24 09:45 Temperature 98.1 F Pulse Rate 74 Pulse Rate [Pulse Oximeter] 74 Respiratory Rate 16 14 Blood Pressure 99/52 L Blood Pressure [Le ft Upper Arm] 104/52 L Pulse Oximetry 96 95 96 Oxygen Delivery Me thod Room Air Room Air 02/29/24 10:01 02/29/24 10:32 02/29/24 11:01 Temperature Pulse Rate 70 69 69 Pulse Rate [Pulse Oximeter] Respiratory Rate 16 14 16 Blood Pressure 95/52 L 103/47 L 96/61 Blood Pressure [Le ft Upper Arm] Pulse Oximetry 95 94 95 Oxygen Delivery Me thod 02/29/24 11:32 02/29/24 12:01 02/29/24 12:02 Temperature Pulse Rate 67 63 64 Pulse Rate [Pulse Oximeter] Respiratory Rate 14 16 Blood Pressure 96/46 L 91/47 L 92/46 L Blood Pressure [Le ft Upper Arm] Pulse Oximetry 94 95 95 Oxygen Delivery Me thod 83-year-old male is alert and interactive but looks like he does not feel well, lying in the bed in exam room 6. Sclera clear, conjugate gaze. Speech is normal, symmetrical facial function. Lungs clear, no wheezing or crackles, no tachypnea. CV regular rate and rhythm, no murmur noted, normal S1-S2. Abdomen is mildly distended, seems to have a central area that seems more distended along the mid abdomen feels protuberant there, do not know if it is an area of defined bowel. States it is nontender. He does have bowel sounds. He does have about 2 to 3+ pitting edema around his left sock line but his could not get these off and on and the band of the sock was constricted around the ankle. Other sock is off, 1 to 2+ pitting edema. Does not extend all the way up the lower extremity, concentrated around the lower portion of the legs. No skin changes such as erythema or cellulitis noted. Hand narrow gauge engineer strengths are 4-5 and symmetric, same at biceps in his arms. He is able to lift both legs alternately off the bed and hold for 2-3 seconds. Documenting provider has reviewed patient's vital signs: yes Course Course ED Course: This is an 83-year-old male coming in with weakness that is generalized in shaking chills. This certainly makes me concerned for infectious etiology. Will do triple viral swab, do think he needs abdominal imaging, would like to see where his white count is. Would consider doing his chest as well as occult pneumonia in this situation certainly could be probable. Urinary etiology needs to be considered as well. Will get a full complement of labs and will do a blood culture given his shaking chills at home. He is currently afebrile, not hypoxic. Will likely need some fluids if he has not been drinking but would like to see where his labs are. Will initiate 500 mL normal saline to start and consider more if he is looking septic at all based on his labs or vitals change. Reevaluation(s) Time of Reevaluation #1: 10:31 Reevaluation #1: Radiology did alert me to patient's CT finding of significant bladder distention. Did visualize the films. Will order a Uro jet and Thakur. Have updated the patient and his . Time of Reevaluation #2: 10:54 Reevaluation #2: Have updated patient's on the acute kidney injury. Will await urinalysis to ensure no infection as well as CT imaging to be read by Radiology. Antibiotics may be indicated if a source of infection is found. White count seems to be a bit higher than I would anticipate just for reactionary changes to his current situation. He still remains afebrile. Patient is getting his Thakur placed right now so hopefully will have his urinalysis shortly as well has his CT imaging being read by Radiology. Time of Reevaluation #3: 11:17 Reevaluation #3: Did update patient and his regarding the pulmonary emboli and heparin. Consultations Consultation #1: Did speak with his general surgeon Dr. Vang. She had seen him in follow-up and felt the same thing I had in his abdomen. She did do abdominal imaging with abdominal x-ray which was reassuring. Time: 09:52 Consultation #2: Have spoken with Dr. Cain whom is the hospitalist, she accepts care of this patient. Time: 10:33 Consultation #3: Received a phone call from radiology. Patient has moderate to large clot burden. He has an 8 cm prostate, did up date the radiologist's that we had seen the postobstructive uropathy and Thakur is being placed. There is some evidence of right heart strain the RV to LV ratio was larger than baseline prior to this CT but it is increased. Patient's troponin is at 0.08 but his creatinine is also at 5.5. His EKG is not showing any definite strain pattern. Have updated the hospitalists, she states he can still stay here but we do need to use heparin given the kidney function. His kidney function should improve with the Thakur catheter. She will get a Thakur catheter. Patient does have a lower blood pressure of 95/52 at 10:18 a.m. but he came in with systolic blood pressure 104. Actually really besides not feeling well does not have specific symptoms of chest pain, no shortness of breath. He is not hypoxic. Time: 11:02 Additional Consultation(s): 11:17 a.m.: Hospitalist updated on emily pyuria I am seen coming out of his bladder. There is no evidence of any fistula or complications of the surgery on CT imaging. Think he is just had significant retention. Discussed antibiotics. She would like a dose of vancomycin and initiate Rocephin. Vital Signs Vital signs: Initial Vital Signs Temperature 98.1 F 02/29/24 09:00 Temperature Source Oral 02/29/24 09:00 Pulse Rate 74 02/29/24 09:00 Pulse Rhythm Regular 02/29/24 09:00 Respiratory Rate 16 02/29/24 09:00 Blood Pressure 104/52 L 02/29/24 09:00 Blood Pressure Mean 69 L 02/29/24 09:00 Blood Pressure Position Supine 02/29/24 09:00 Pulse Oximetry 96 02/29/24 09:00 Oxygen Delivery Method Room Air 02/29/24 09:00 Vital Signs Temperature 98.1 F 02/29/24 09:00 Pulse Rate 74 02/29/24 09:00 Respiratory Rate 16 02/29/24 09:00 Blood Pressure 104/52 L 02/29/24 09:00 Pulse Oximetry 96 02/29/24 09:00 Oxygen Delivery Method Room Air 02/29/24 09:00 Temperature 98.1 F 02/29/24 12:31 Pulse Rate 74 02/29/24 12:31 Respiratory Rate 16 02/29/24 12:31 Blood Pressure 104/52 L 02/29/24 12:31 Pulse Oximetry 95 02/29/24 12:02 Oxygen Delivery Method Room Air 02/29/24 09:36 Medications Administered Medications: Generic Name Dose Route Start Last Admin Trade Name Freq PRN Reason Stop Dose Admin Heparin Sodium/Dextrose 25,000 unit in 500 mls @ 0 mls/hr 02/29/24 11:00 02/29/24 11:24 Heparin IV 1,500 unit/hr .Q0M SUZANNA 30 mls/hr Administration Protocol Per Protocol Vancomycin/PEG/NADA/Lysine/Water 1.5 gm in 300 mls @ 200 mls/hr 02/29/24 12:30 02/29/24 11:57 Vancomycin 1.5 Gm/300 Ml IVPB 02/29/24 13:59 200 mls/hr ONCE ONE Administration Protocol Sodium Chloride 1,000 mls @ 500 mls/hr 02/29/24 12:06 02/29/24 12:16 0.9 % Sodium Chloride 1000 Ml IV 02/29/24 14:05 500 mls/hr .Q2H SUZANNA Administration Lidocaine HCl 6 ml 02/29/24 10:32 02/29/24 10:47 Lidocaine Hcl 2 % Jelly (Top) Sterile UR 6 ml ONCE PRN Administration Discontinued Medications Generic Name Dose Route Start Last Admin Trade Name Freq PRN Reason Stop Dose Admin Heparin Sodium (Porcine) 7,100 unit 02/29/24 11:00 02/29/24 11:24 Heparin 5,000 Unit/0.5 Ml Inj 80 unit/kg (7100 unit) 02/29/24 11:01 7,100 unit IVP Administration ONCE ONE Sodium Chloride 500 mls @ 500 mls/hr 02/29/24 09:47 02/29/24 11:30 0.9 % Sodium Chloride 500 Ml IV 02/29/24 10:46 Infused .Q1H ONE Infusion Ceftriaxone Sodium 1 gm/ 100 mls @ 200 mls/hr 02/29/24 11:45 02/29/24 12:10 Sodium Chloride IVPB 02/29/24 12:14 Infused ONCE ONE Infusion MDM - Weakness Lab Data Attestation: I reviewed the patient's lab results. Lab results narrative: Patient's creatinine in the beginning January was 0.8. He has acute kidney injury with this post renal obstruction, has significant urinary retention. We are placing Thakur catheter. Will need to see what his urinalysis is to see if there is infection with this white blood count. CT imaging is pending as well. Labs: Lab Results 02/29/24 02/29/24 02/29/24 Range/Units 09:36 09:56 10:55 WBC 36.98 H* (4.50-11.00) K/uL RBC 3.58 L (4.30-5.90) m/uL Hgb 11.1 L (13.5-17.5) gm/dL Hct 33.0 L (37.0-53.0) % MCV 92 (80-100) fL MCH 31 (26-34) pg MCHC 34 (32-36) gm/dL RDW Coeff of Yong 12.8 (11.5-15.5) % Plt Count 290 (140-440) K/uL Neut % (Auto) 90.6 H (42.0-72.0) % Lymph % (Auto) 0.7 L (20-44) % [place] % (Auto) 5.1 (0.0-11.0) % Eos % (Auto) 0.0 (0.0-7.0) % Baso % (Auto) 0.1 (0.0-3.0) % Neut # (Auto) 33.50 H (1.7-7.0) K/uL Lymph # (Auto) 0.30 L (0.90-2.90) K/uL [place] # (Auto) 1.90 H (0.00-0.90) K/UL Eos # (Auto) 0.00 (0.00-0.50) K/uL Baso # (Auto) 0.00 (0.00-0.30) K/uL Abs Immat Gran (auto) 1.30 H (0.00-0.30) K/uL Imm/Tot Granulo (auto) 3.5 % Diff Slide Review Acceptable Review (Acceptable) INR 1.11 H (0.91-1.10) APTT 33 (23-33) Seconds Sodium 130 L (135-149) mmol/L Potassium 4.2 (3.6-5.1) mmol/L Chloride 103 (96-114) mmol/L Carbon Dioxide 17 L (20-32) mmol/L Anion Gap 10 (7-15) mEq/L BUN 104 H (7-30) mg/dL Creatinine 5.5 H (0.5-1.5) mg/dL Estimated Creat Clear 11.22 Estimated GFR 10 ml/min Glucose 129 H (60-115) mg/dL Lactate 1.8 (0.5-1.9) mmol/L Calcium 8.1 L (8.4-10.6) mg/dL Magnesium 2.6 (1.5-2.6) mg/dL Total Bilirubin 0.8 (0.1-1.5) mg/dL AST 52 H (12-35) U/L ALT 28 (4-50) U/L Alkaline Phosphatase 128 (40-150) U/L Troponin I 0.08 H* (0.01-0.04) ng/mL C-Reactive Protein 22.1 H (0.5-1.0) mg/dL NT-Pro-B Natriuret Pep 5780 pg/mL Total Protein 5.7 L (6.0-8.3) g/dL Albumin 2.9 L (3.3-5.0) g/dL Urine Color Light yellow (Yellow) Urine Appearance Cloudy A (Clear) Urine pH 5.5 (5.0-8.5) Ur Specific [place] 1.010 (1.000-1.030) Urine Protein 1+ A (Negative) Urine Glucose (UA) Negative (Negative) Urine Ketones Negative (Negative) Urine Blood 2+ A (Negative) Urine Nitrite Negative (Negative) Urine Bilirubin Negative (Negative) Urine Urobilinogen 0.2 (0.2-1.0) Ur Leukocyte Esterase 3+ A (Negative) Urine RBC 2-5 A (0-2) Urine WBC >100 A (0-5) Ur Squamous Epith Cells Few (None-Few) Urine Bacteria Moderate A (None) SARS-CoV-2 (PCR) Negative SARS-CoV-2 (Negative) Influenza Type A (PCR) Negative PCR FLU A (Negative) Influenza Type B (PCR) Negative PCR FLU B (Negative) RSV (PCR) Negative PCR RSV (Negative) Imaging Data CT Chest/Ab/Pelvis: Attestation: I have reviewed the pertinent imaging results. Radiologist's impression: Patient: DONAVON MORA Facility:[facility] Patient ID:?[id number] Site Patient ID:?[id number] Site :?[id number] Study:?CT-Chest/Abd/Pelvis 108CC ISOVUE 370-02/29/2024 10:44:56 AM Ordering Physician:Tunde Renee Final Report: INDICATION: Weakness. Abdominal distension. Decreased appetite. COMPARISON: A similar examination dated December 17, 2023 TECHNIQUE: CT examination of the chest, and pelvis was performed following the uneventful intravenous administration of 108 cc of Isovue 3 7. Thin section axial images were obtained from the thoracic inlet through the pubic symphysis. Oral contrast was not administered. Sagittal and coronal reformatted imaging was performed Please note that all CT scans at this facility use dose modulation, iterative reconstruction, and/or weight-based dosing when appropriate to reduce radiation dose to as low as reasonably achievable. FINDINGS: CHEST: The heart size is top-normal. There is no mediastinal or hilar adenopathy or mass. No pericardial effusion Not timed for the pulmonary artery distribution though there is a moderate large clot burden pulmonary embolus mainly involving the lower lobes. There is a faint suggestion of upper lobe involvement as well. The RV/LV ratio is elevated at 1.2 indicating right heart strain. Of note, the patient did have mildly elevated RV to LV ratio at 1.0 on the prior study when he did not have a PE. However, it is worse on the current exam. Lung windows reveal trace basilar atelectasis. No pleural effusion or pneumothorax. There is a 1 centimeter nodule at the left lung base which was present December 17, 2023 and should be further evaluated in this patient with a history of malignancy. ABDOMEN AND PELVIS: LIVER/BILIARY SYSTEM:The liver is normal in size and configuration. There is no focal mass and there is no intra- or extra hepatic biliary ductal dilatation.Steatosis. Cholelithiasis. No evidence of acute cholecystitis or common duct obstruction ADRENALS: Normal KIDNEYS, URETERS and BLADDER:There are bilateral renal cysts. There is severe hydronephrosis and hydroureter due to a distended bladder. The bladder is distended due to an enlarged prostate. The bladder measures about 23 centimeters craniocaudal. SPLEEN:Normal appearance. PANCREAS: Appears normal. RETROPERITONEUM and MESENTERY: There is no mass, adenopathy or aortic aneurysm. Atherosclerotic vascular calcification GASTROINTESTINAL SYSTEM: There is no evidence of diverticulitis, colitis, mechanical obstruction, or appendicitis. The small bowel as visualized appears normal.No acute appearing GI findings. Fluid around the rectum is probably related to inflammatory change from the adjacent prostate and bladder rather than due to proctitis. There are postsurgical changes related to partial colon resection PELVIS: Abnormal bladder and prostate as mentioned above. OSSEOUS STRUCTURES and ABDOMINAL WALL: There is an age-appropriate appearance of the osseous structures.No significant abdominal wall defect. OTHER: No free fluid or free air. Discussed with Dr. Taveras at 11 a.m. on February 29, 2024 IMPRESSION: 1. CHEST: Not timed for the pulmonary artery distribution though there is a moderate to large clot burden pulmonary embolus primarily involving the lower lobes. There is evidence of right heart strain with an RV/LV ratio of 1.2. Bibasilar atelectasis. Redemonstration of a 1 centimeter left lower lobe nodule unchanged since December 17, 2023. 2. ABDOMEN AND PELVIS: Significant hydronephrosis and hydroureter due to a distended bladder. The bladder measures 23 centimeters in craniocaudal dimension. This represents bladder outlet obstruction probably due to a markedly enlarged prostate which measures 6.1 x 7.8 x 7.8 centimeters. Other nonacute appearing findings in the abdomen and pelvis as discussed in the body of the report Please note that all CT scans at this facility use dose modulation, iterative reconstruction, and/or weight-based dosing when appropriate to reduce radiation dose to as low as reasonably achievable. Dictated by Danny Mera MD @ 02/29/2024 11:04:46 AM (Electronic Signature) ECG Data Attestation: I personally reviewed and interpreted this ECG as follows: (Normal sinus rhythm, 73 beats per minute. Right bundle branch block, appears to have nonspecific intra conduction delay. No active ischemic change or infarct.) ECG interpretation date: 02/29/24 ECG interpretation time: 09:50 Prior ECG tracings: not available for review Discharge Plan Discharge Clinical Impression: Acute kidney injury, Pulmonary embolism, bilateral, Prostate enlargement, Acute urinary retention, Urinary tract infection Patient Disposition: Admitted As Observation
--- NOTE | 2024-02-29 09:34 | CRLHL7_ITS ---
For Patients: As a result of the Century Cures Act, medical imaging exams and procedure reports are released immediately into your electronic medical record. You may view this report before your referring provider. If you have questions, please contact your health care provider. INDICATION: Weakness. Abdominal distension. Decreased appetite. COMPARISON: A similar examination dated December 17, 2023 TECHNIQUE: CT examination of the chest, and pelvis was performed following the uneventful intravenous administration of 108 cc of Isovue 3 7. Thin section axial images were obtained from the thoracic inlet through the pubic symphysis. Oral contrast was not administered. Sagittal and coronal reformatted imaging was performed Please note that all CT scans at this facility use dose modulation, iterative reconstruction, and/or weight-based dosing when appropriate to reduce radiation dose to as low as reasonably achievable. FINDINGS: CHEST: The heart size is top-normal. There is no mediastinal or hilar adenopathy or mass. No pericardial effusion Not timed for the pulmonary artery distribution though there is a moderate large clot burden pulmonary embolus mainly involving the lower lobes. There is a faint suggestion of upper lobe involvement as well. The RV/LV ratio is elevated at 1.2 indicating right heart strain. Of note, the patient did have mildly elevated RV to LV ratio at 1.0 on the prior study when he did not have a PE. However, it is worse on the current exam. Lung windows reveal trace basilar atelectasis. No pleural effusion or pneumothorax. There is a 1 centimeter nodule at the left lung base which was present December 17, 2023 and should be further evaluated in this patient with a history of malignancy. ABDOMEN AND PELVIS: LIVER/BILIARY SYSTEM:The liver is normal in size and configuration. There is no focal mass and there is no intra- or extra hepatic biliary ductal dilatation.Steatosis. Cholelithiasis. No evidence of acute cholecystitis or common duct obstruction ADRENALS: Normal KIDNEYS, URETERS and BLADDER:There are bilateral renal cysts. There is severe hydronephrosis and hydroureter due to a distended bladder. The bladder is distended due to an enlarged prostate. The bladder measures about 23 centimeters craniocaudal. SPLEEN:Normal appearance. PANCREAS: Appears normal. RETROPERITONEUM and MESENTERY: There is no mass, adenopathy or aortic aneurysm. Atherosclerotic vascular calcification GASTROINTESTINAL SYSTEM: There is no evidence of diverticulitis, colitis, mechanical obstruction, or appendicitis. The small bowel as visualized appears normal.No acute appearing GI findings. Fluid around the rectum is probably related to inflammatory change from the adjacent prostate and bladder rather than due to proctitis. There are postsurgical changes related to partial colon resection PELVIS: Abnormal bladder and prostate as mentioned above. OSSEOUS STRUCTURES and ABDOMINAL WALL: There is an age-appropriate appearance of the osseous structures.No significant abdominal wall defect. OTHER: No free fluid or free air. Discussed with Dr. Taveras at 11 a.m. on February 29, 2024 IMPRESSION: 1. CHEST: Not timed for the pulmonary artery distribution though there is a moderate to large clot burden pulmonary embolus primarily involving the lower lobes. There is evidence of right heart strain with an RV/LV ratio of 1.2. Bibasilar atelectasis. Redemonstration of a 1 centimeter left lower lobe nodule unchanged since December 17, 2023. 2. ABDOMEN AND PELVIS: Significant hydronephrosis and hydroureter due to a distended bladder. The bladder measures 23 centimeters in craniocaudal dimension. This represents bladder outlet obstruction probably due to a markedly enlarged prostate which measures 6.1 x 7.8 x 7.8 centimeters. Other nonacute appearing findings in the abdomen and pelvis as discussed in the body of the report Please note that all CT scans at this facility use dose modulation, iterative reconstruction, and/or weight-based dosing when appropriate to reduce radiation dose to as low as reasonably achievable. Dictated by Danny Mera MD @ 02/29/2024 11:04:46 AM (Electronically Signed)
[2024-02-29] MEDS: 0.9 % SODIUM CHLORIDE 500 ML 500 ML IV (09:58)
[2024-02-29 10:04] LABS: Lactate* 1.8 mmol/L (0.5-1.9)
[2024-02-29 10:08] LABS: Basophils Percent Auto 0.1 % (0.0-3.0); Hemoglobin* 11.1 gm/dL (13.5-17.5); Immature Granulocytes Pct Auto 3.5 %; Lymphocytes Percent Auto 0.7 % (20-44); Mean Corpuscular HGB Conc 34 gm/dL (32-36); Mean Corpuscular Hemoglobin 31 pg (26-34); Mean Corpuscular Volume 92 fL (80-100); Monocytes Percent Auto 5.1 % (0.0-11.0); Neutrophils Percent Auto 90.6 % (42.0-72.0); Platelet Count* 290 K/uL (140-440); RDW Coefficient of Variation % 12.8 % (11.5-15.5); Red Blood Count 3.58 m/uL (4.30-5.90)
[2024-02-29 10:20] LABS: Albumin* 2.9 g/dL (3.3-5.0); Chloride* 103 mmol/L (96-114)
[2024-02-29 10:21] LABS: Potassium* 4.2 mmol/L (3.6-5.1); Sodium* 130 mmol/L (135-149)
[2024-02-29 10:23] LABS: Bilirubin Total* 0.8 mg/dL (0.1-1.5); Creatinine* 5.5 mg/dL (0.5-1.5); Est. Creatinine Clearance* 11.22; Estimated Glomerular Filt Rate 10 ml/min
[2024-02-29 10:24] LABS: Alanine Aminotransferase* 28 U/L (4-50); Alkaline Phosphatase* 128 U/L (40-150); Anion Gap 10 mEq/L (7-15); Aspartate Amino Transferase* 52 U/L (12-35); Blood Urea Nitrogen* 104 mg/dL (7-30); Calcium* 8.1 mg/dL (8.4-10.6); Carbon Dioxide* 17 mmol/L (20-32); Glucose* 129 mg/dL (60-115); Magnesium* 2.6 mg/dL (1.5-2.6); Total Protein* 5.7 g/dL (6.0-8.3)
[2024-02-29 10:35] LABS: NT Pro B Type NatriureticPept* 5780 pg/mL
[2024-02-29 10:37] LABS: Troponin I* 0.08 ng/mL (0.01-0.04)
[2024-02-29 10:38] LABS: Slide Review Acceptable Review (Acceptable); Slide Review Reflex Yes; White Blood Count* 36.98 K/uL (4.50-11.00)
[2024-02-29 10:40] LABS: C Reactive Protein* 22.1 mg/dL (0.5-1.0)
[2024-02-29 10:45] LABS: PCR FLU A Negative PCR FLU A (Negative); PCR FLU B Negative PCR FLU B (Negative); PCR RSV Negative PCR RSV (Negative); SARS PCR* Negative SARS-CoV-2 (Negative)
[2024-02-29] MEDS: lidocaine HCL 2 % JELLY (TOP) STERILE 6 ML UR (10:47)
[2024-02-29 11:11] LABS: Appearance Urine Cloudy (Clear); Bilirubin Urine Negative (Negative); Blood Urine 2+ (Negative); Color Urine Light yellow (Yellow); Glucose Urine Negative (Negative); Ketones Urine Negative (Negative); Leukocyte Esterase Urine 3+ (Negative); Nitrite Urine Negative (Negative); Protein Urine 1+ (Negative); Urobilinogen Urine 0.2 (0.2-1.0); pH Urine 5.5 (5.0-8.5)
[2024-02-29 11:14] LABS: INR 1.11 (0.91-1.10); Prothrombin Time 15.1 Seconds
[2024-02-29 11:15] LABS: Partial Thromboplastin Time* 33 Seconds (23-33)
[2024-02-29] MEDS: HEPARIN 25,000 UNIT/500 ML BAG 30 UNIT IV (11:24)
[2024-02-29] MEDS: HEPARIN 5,000 UNIT/0.5 ML INJ 7100 UNIT IVP (11:24)
[2024-02-29 11:36] LABS: Bacteria Urine Moderate; Squamous Epithelial Cell Urine Few (None-Few); WBC Urine >100 (0-5)
[2024-02-29] MEDS: cefTRIAXone 1 GM in 0.9 % SODIUM CHLORIDE Mini-bag 100 ML IVPB (11:41)
[2024-02-29] MEDS: VANCOMYCIN 1.5 GM/300 ML 1.5 GM/300 ML PIGGYBACK IVPB (11:57)
[2024-02-29] MEDS: 0.9 % SODIUM CHLORIDE 1000 ml 1,000 ML 500 ML IV (12:16)
--- NOTE | 2024-02-29 12:31 | CRLHL7_ITS ---
For Patients: As a result of the Century Cures Act, medical imaging exams and procedure reports are released immediately into your electronic medical record. You may view this report before your referring provider. If you have questions, please contact your health care provider. INDICATION: Pulmonary emboli TECHNIQUE: Ultrasound venous duplex lower extremity bilateral. Compression venous exam was performed using allan-scale, color Doppler, and spectral Doppler imaging. COMPARISON: None. FINDINGS: Sonographic imaging demonstrates the common femoral, deep femoral, superficial femoral, popliteal, posterior tibial and greater saphenous veins to be fully compressible with normal color Doppler blood flow in both lower extremities. Complex avascular collection with septations in the right popliteal fossa measuring 4.0 x 2.9 x 6.6 centimeters. IMPRESSION: 1. No evidence of deep venous thrombosis bilateral lower extremities. 2. Complex collection within the right popliteal fossa measuring up to 6.6 centimeters. Etiology of this lesion is indeterminate although suspect this represents a complex Olivier`s cyst. Differential would include seroma or evolving hematoma. Complex cystic soft tissue lesion not entirely excluded on the basis of this study although considered unlikely. Dictated by Vaughn Palomino MD @ 02/29/2024 1:56:33 PM (Electronically Signed)
--- NOTE | 2024-02-29 12:32 | P.IMPN_ITS ---
Exam Const: Vital Signs, click to edit/add: Vital Signs - 24 hr 02/29/24 09:00 02/29/24 09:36 02/29/24 09:45 Temperature 98.1 F Pulse Rate 74 Pulse Rate [Pulse Oximeter] 74 Respiratory Rate 16 14 Blood Pressure 99/52 L Blood Pressure [Le ft Upper Arm] 104/52 L Pulse Oximetry 96 95 96 Oxygen Delivery Me od Room Air Room Air 02/29/24 10:01 02/29/24 10:32 02/29/24 11:01 Temperature Pulse Rate 70 69 69 Pulse Rate [Pulse Oximeter] Respiratory Rate 16 14 16 Blood Pressure 95/52 L 103/47 L 96/61 Blood Pressure [Le ft Upper Arm] Pulse Oximetry 95 94 95 Oxygen Delivery Me od 02/29/24 11:32 02/29/24 12:01 02/29/24 12:02 Temperature Pulse Rate 67 63 64 Pulse Rate [Pulse Oximeter] Respiratory Rate 14 16 Blood Pressure 96/46 L 91/47 L 92/46 L Blood Pressure [Le ft Upper Arm] Pulse Oximetry 94 95 95 Oxygen Delivery Me od 02/29/24 12:31 Temperature 98.1 F Pulse Rate Pulse Rate [Pulse Oximeter] 74 Respiratory Rate 16 Blood Pressure Blood Pressure [Le ft Upper Arm] 104/52 L Pulse Oximetry Oxygen Delivery Me thod Labs Labs: Laboratory Results - last 24 hr 02/29/24 02/29/24 02/29/24 09:36 09:56 10:55 WBC 36.98 H* RBC 3.58 L Hgb 11.1 L Hct 33.0 L MCV 92 MCH 31 MCHC 34 RDW Coeff of Yong 12.8 Plt Count 290 Neut % (Auto) 90.6 H Lymph % (Auto) 0.7 L [place] % (Auto) 5.1 Eos % (Auto) 0.0 Baso % (Auto) 0.1 Neut # (Auto) 33.50 H Lymph # (Auto) 0.30 L [place] # (Auto) 1.90 H Eos # (Auto) 0.00 Baso # (Auto) 0.00 Abs Immat Gran (auto) 1.30 H Imm/Tot Granulo (auto) 3.5 Diff Slide Review Acceptable Review INR 1.11 H APTT 33 Sodium 130 L Potassium 4.2 Chloride 103 Carbon Dioxide 17 L Anion Gap 10 BUN 104 H Creatinine 5.5 H Estimated Creat Clear 11.22 Estimated GFR 10 Glucose 129 H Lactate 1.8 Calcium 8.1 L Magnesium 2.6 Total Bilirubin 0.8 AST 52 H ALT 28 Alkaline Phosphatase 128 Troponin I 0.08 H* C-Reactive Protein 22.1 H NT-Pro-B Natriuret Pep 5780 Total Protein 5.7 L Albumin 2.9 L Urine Color Light yellow Urine Appearance Cloudy A Urine pH 5.5 Ur Specific [place] 1.010 Urine Protein 1+ A Urine Glucose (UA) Negative Urine Ketones Negative Urine Blood 2+ A Urine Nitrite Negative Urine Bilirubin Negative Urine Urobilinogen 0.2 Ur Leukocyte Esterase 3+ A Urine RBC 2-5 A Urine WBC >100 A Ur Squamous Epith Cells Few Urine Bacteria Moderate A SARS-CoV-2 (PCR) Negative SARS-CoV-2 Influenza Type A (PCR) Negative PCR FLU A Influenza Type B (PCR) Negative PCR FLU B RSV (PCR) Negative PCR RSV
--- NOTE | 2024-02-29 12:32 | P.IMHP_ITS ---
Hospitalist- H&P: HPI History of Present Illness Date Seen: 02/29/24 Chief complaint: weakness Narrative: Vladimir Alegria is a 83 year old male who presented to the ER for weakness. Hasn't felt well for a 1-2 days, decreased appetite. Had chills this morning, then had a soft mechanical fall to the floor. Didn't hit his head. No chest pain, no headache, no breathing difficulties. ER findings: - TERESA with Creatinine of 5.5 (baseline 0.8), normal K - B lower lobe PEs with moderate clot burden, no acute DVTs on BLE ultrasound - significant urinary retention, Thakur placed, >2L of pyuria returned - WBC of 36, PMN predominance - mild hypotension, no tachycardia, no fever - heparin drip initiated, given Ceftriaxone + vancomycin Upon arrival to the floor, patient has no concerns for hospitalist team. TTE is completed soon after admission and reassuring without evidence of right heart strain. Histories updated below, Dr. Magana is PCP. Recently had a laparoscopic L hemicolectomy for new diagnosis of colon cancer. Review of Systems Status of ROS: Reports: 10 or more systems reviewed and unremarkable except as noted in History and below [facility] Medical History (Updated 02/29/24 @ 17:35 by Amee Cain MD) Pulmonary nodule ?R91.1 - Solitary pulmonary nodule (ICD-10) HTN (hypertension) ?I10 - Essential (primary) hypertension (ICD-10) Simple obesity ?E66.9 - Obesity, unspecified (ICD-10) Polyp of colon (11/16/18) ?K63.5 - Polyp of colon (ICD-10) Hearing loss ?H91.90 - Unspecified hearing loss, unspecified ear (ICD-10) Erectile dysfunction ?N52.9 - Male erectile dysfunction, unspecified (ICD-10) Diverticulosis ?K57.90 - Diverticulosis of intestine, part unspecified, without perforation or abscess without bleeding (ICD-10) Cataract of both eyes ?H26.9 - Unspecified cataract (ICD-10) Adenocarcinoma of colon ?C18.9 - Malignant neoplasm of colon, unspecified (ICD-10) Constipation ?K59.00 - Constipation, unspecified (ICD-10) Tubulovillous adenoma of colon ?D12.6 - Benign neoplasm of colon, unspecified (ICD-10) Hyperlipidemia ?E78.5 - Hyperlipidemia, unspecified (ICD-10) 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 He just bought a condo in [place] and spent much of the winter there with his . He has children in the [facility]. He is not sexually active. No regular exercise. HABITS: No tobacco or recreational drug use. Alcohol use is about 12 drinks per week. What is your current living situation?: I presently have a place to live Problems where you live: no known problems Problems where you live details: none In the past 12 months, utilities in danger of being shut off: no In past 12 months, lack of transportation kept you from medical appts, meetings, work, or getting things needed for daily living: no In the past 12 mos, have been you worried that your food would run out before you had money to buy more?: never true In the past 12 mos, the food you bought just didn't last and you didn't have money to buy more?: never true Highest level of school completed/degree received: high school graduate Smoking Status: Never smoker Do you use any of these nicotine containing products: None Second hand tobacco smoke exposure: No How often do you have a drink containing alcohol: monthly or less Alcohol type details: occasional drinks How many standard drinks containing alcohol do you have on a typical day: 1 or 2 How often do you have six or more drinks on one occasion: Never AUDIT-C Alcohol total score: 1 Non-prescribed substance use: denies use Caffeine: No How often does anyone, including family, friends and others, physically hurt you : never How often does anyone, including family, friends and others, insult or talk down to you: never How often does anyone, including family, friends and others, threaten you with harm: never How often does anyone, including family, friends and others, scream or curse at you: never service: Yes Meds Home Medications and Allergies Home Medication Comments: Takes amlodipine, chlorthalidone, lisinopril, simvastatin Allergies Allergy/AdvReac Type Severity Reaction Status Date / Time No Known Allergies Allergy Verified 02/29/24 10:51 Exam Narrative: Exam Narrative: GEN: Alert and oriented, laying comfortably in bed and nontoxic. Red tinged urine in Thakur bag at bedside HEENT: EOMIs bilaterally, no scleral icterus CV: RRR, No concerning murmurs, rubs, or gallops R: LCTA bilaterally without concerning wheezing, rales, or rhonchi Ab: Soft and nontender Ext: wwp, no concerning edema Skin: No concerning skin lesions or rashes on exposed skin Neuro: Nonfocal Psych: Appropriate Const: Vital Signs, click to edit/add: Vital Signs - 24 hr 02/29/24 09:00 02/29/24 09:36 02/29/24 09:45 Temperature 98.1 F Pulse Rate 74 Pulse Rate [Pulse Oximeter] 74 Respiratory Rate 16 14 Blood Pressure 99/52 L Blood Pressure [Le ft Upper Arm] 104/52 L Pulse Oximetry 96 95 96 Oxygen Delivery Me thod Room Air Room Air 02/29/24 10:01 02/29/24 10:32 02/29/24 11:01 Temperature Pulse Rate 70 69 69 Pulse Rate [Pulse Oximeter] Respiratory Rate 16 14 16 Blood Pressure 95/52 L 103/47 L 96/61 Blood Pressure [Le ft Upper Arm] Pulse Oximetry 95 94 95 Oxygen Delivery Me thod 02/29/24 11:32 02/29/24 12:01 02/29/24 12:02 Temperature Pulse Rate 67 63 64 Pulse Rate [Pulse Oximeter] Respiratory Rate 14 16 Blood Pressure 96/46 L 91/47 L 92/46 L Blood Pressure [Le ft Upper Arm] Pulse Oximetry 94 95 95 [facility] 02/[facility]/24 12:31 Temperature 98.1 F Pulse Rate Pulse Rate [Pulse Oximeter] 74 Respiratory Rate 16 Blood Pressure Blood Pressure [Le ft Upper Arm] 104/52 L Pulse Oximetry Oxygen Delivery [facility] Hospitalist - H&P: Result Labs Labs: Short CBC 02/29/24 Range/Units 09:56 WBC 36.98 H* (4.50-11.00) K/uL Hgb 11.1 L (13.5-17.5) gm/dL Hct 33.0 L (37.0-53.0) % Plt Count 290 (140-440) K/uL BMP 02/29/24 09:56 Sodium 130 L Potassium 4.2 Chloride 103 Carbon Dioxide 17 L BUN 104 H Creatinine 5.5 H Glucose 129 H Calcium 8.1 L Cardiac Enzymes 02/29/24 Range/Units 09:56 Troponin I 0.08 H* (0.01-0.04) ng/mL Liver Function 02/29/24 Range/Units 09:56 Total Bilirubin 0.8 (0.1-1.5) mg/dL AST 52 H (12-35) U/L ALT 28 (4-50) U/L Alkaline Phosphatase 128 (40-150) U/L Albumin 2.9 L (3.3-5.0) g/dL Urine 02/29/24 Range/Units 10:55 Urine Color Light yellow (Yellow) Urine Appearance Cloudy A (Clear) Urine pH 5.5 (5.0-8.5) Ur Specific [place] 1.010 (1.000-1.030) Urine Protein 1+ A (Negative) Urine Glucose (UA) Negative (Negative) Assessment and Plan Assessment and plan (1) Acute kidney injury: Problem comment: - likely postrenal, 2/2 acute urinary retention/BPH - reassuring K, continue to follow lytes and renal function closely - hold nephrotoxic medications Status: Acute (2) Pulmonary embolism, bilateral: Problem comment: - moderate clot burden, bilateral. Concern for R heart strain, reassuring TTE obtained - TTE, heparin gtt initiated - mild hypotension, asymptomatic. No tachycardia Status: Acute (3) Prostate enlargement: Problem comment: - with resultant urinary retention - presumably source of urinary retention, consider initiation of Flomax when less hypotensive - keep Thakur in at this time Status: Acute (4) Urinary tract infection: Problem comment: - with associated leukocytosis, likely 2/2 acute urinary retention - given Ceftriaxone + Vancomycin x1 in ED, will continue Ceftriaxone and follow WBC/culture results Status: Acute (5) Weakness: Problem comment: - presumably 2/2 acute illness/UTI, PEs - therapies ordered Status: Acute Plan - per above - updated at bedside - Full Code
[2024-02-29 15:01] LABS: Hemoglobin* 11.1 gm/dL (13.5-17.5); Immature Granulocytes Pct Auto 2.6 %; Lymphocytes Percent Auto 1.1 % (20-44); Mean Corpuscular HGB Conc 34 gm/dL (32-36); Mean Corpuscular Hemoglobin 31 pg (26-34); Mean Corpuscular Volume 92 fL (80-100); Monocytes Percent Auto 4.2 % (0.0-11.0); Neutrophils Percent Auto 92.1 % (42.0-72.0); Platelet Count* 255 K/uL (140-440)
[2024-02-29 15:16] LABS: Chloride* 105 mmol/L (96-114); Potassium* 4.1 mmol/L (3.6-5.1); Sodium* 133 mmol/L (135-149)
[2024-02-29 15:18] LABS: Creatinine* 4.7 mg/dL (0.5-1.5); Est. Creatinine Clearance* 13.53; Estimated Glomerular Filt Rate 12 ml/min
[2024-02-29 15:19] LABS: Anion Gap 12 mEq/L (7-15); Blood Urea Nitrogen* 97 mg/dL (7-30); Calcium* 7.6 mg/dL (8.4-10.6); Carbon Dioxide* 16 mmol/L (20-32); Glucose* 165 mg/dL (60-115)
[2024-02-29 15:38] LABS: Troponin I* 0.07 ng/mL (0.01-0.04)
[2024-02-29 15:52] LABS: Slide Review Reflex Yes
[2024-02-29] MEDS: PANTOPRAZOLE SODIUM 40 MG INJ IVP (16:31)
--- NOTE | 2024-02-29 18:29 | PC.NURSE ---
shift note: pt admit via cart from ED. Heparin gtt , fluid bolus and antibiotic infusion on admit. LS dim throughout. BP 92/47. Pt denies sob, GARRISON,chest pain or pressure. pt placed on cont O2 sats. waterman in place with 1850cc UO garrett returns. pt had xlarge loose stool. Pt denies pain at this time.
[2024-02-29 18:33] LABS: INR 1.22 (0.91-1.10); Prothrombin Time 16.2 Seconds
[2024-02-29 18:49] LABS: Partial Thromboplastin Time* 71 Seconds (23-33)
--- NOTE | 2024-02-29 19:41 | PC.NURSE ---
shift note: 1810 PTT 71; no change in heparin per protocol. PTT ordered for 03/01/24 @ 0010.
[2024-02-29 19:57] LABS: Slide Review Acceptable Review (Acceptable)
[2024-02-29] MEDS: SODIUM CHLORIDE 0.9 % (FLUSH) 10 ML SYRINGE 5 ML IVF (20:35)
[2024-03-01] VITALS (10 sets, daily range): BP systolic 91–120; BP diastolic 52–63; PULSE 57–74; RESP 16–18; TEMP 36.6–37.3; O2SAT 93–95
[2024-03-01 00:39] LABS: Partial Thromboplastin Time* 65 Seconds (23-33)
[2024-03-01] MEDS: 0.9 % SODIUM CHLORIDE 250 ml IV (03:08)
[2024-03-01] MEDS: VANCOMYCIN 1 GM/200 ML 1 GM/200 ML PIGGYBACK IVPB (03:08)
[2024-03-01] MEDS: HEPARIN 25,000 UNIT/500 ML BAG 30 UNIT IV (04:34)
--- NOTE | 2024-03-01 05:34 | PC.NURSE ---
Addendum entered by Charline Gomez RN 03/01/24 06:07: hematuria resolved, urine cloudy and straw colored Original Note: [id number] Pt slept entire shift, no N/V, denies chest pain, headache or any pain. positive blood culture results obtained during noc, updated can MAX administered x1. afbrile. waterman patent and draining, garrett red with small clots present.
[2024-03-01 06:53] LABS: Partial Thromboplastin Time* 49 Seconds (23-33)
[2024-03-01 06:56] LABS: Albumin* 2.6 g/dL (3.3-5.0); Chloride* 109 mmol/L (96-114)
[2024-03-01 06:57] LABS: Potassium* 3.7 mmol/L (3.6-5.1); Sodium* 138 mmol/L (135-149)
[2024-03-01 06:59] LABS: Anion Gap 10 mEq/L (7-15); Aspartate Amino Transferase* 66 U/L (12-35); Bilirubin Total* 0.2 mg/dL (0.1-1.5); Carbon Dioxide* 19 mmol/L (20-32); Creatinine* 3.5 mg/dL (0.5-1.5); Est. Creatinine Clearance* 18.17; Estimated Glomerular Filt Rate 17 ml/min
[2024-03-01 07:00] LABS: Alanine Aminotransferase* 31 U/L (4-50); Alkaline Phosphatase* 108 U/L (40-150); Blood Urea Nitrogen* 84 mg/dL (7-30); Calcium* 7.7 mg/dL (8.4-10.6); Glucose* 105 mg/dL (60-115); Total Protein* 5.3 g/dL (6.0-8.3)
[2024-03-01 07:20] LABS: Basophils Percent Auto 0.1 % (0.0-3.0); Eosinophils Percent Auto 0.1 % (0.0-7.0); Hemoglobin* 10.5 gm/dL (13.5-17.5); Immature Granulocytes Pct Auto 1.1 %; Lymphocytes Percent Auto 3.5 % (20-44); Mean Corpuscular HGB Conc 34 gm/dL (32-36); Mean Corpuscular Hemoglobin 31 pg (26-34); Mean Corpuscular Volume 92 fL (80-100); Monocytes Percent Auto 7.9 % (0.0-11.0); Neutrophils Percent Auto 87.3 % (42.0-72.0); Platelet Count* 269 K/uL (140-440); Red Blood Count 3.38 m/uL (4.30-5.90)
[2024-03-01 07:30] LABS: Slide Review Reflex Yes
[2024-03-01 07:31] LABS: White Blood Count* 27.22 K/uL (4.50-11.00)
[2024-03-01] MEDS: HEPARIN 5,000 UNIT/0.5 ML INJ 2700 UNIT IVP (07:45)
[2024-03-01 07:56] LABS: Slide Review Acceptable Review (Acceptable)
[2024-03-01] MEDS: 0.9 % SODIUM CHLORIDE 500 ML 500 ML IV (08:10)
[2024-03-01] MEDS: SODIUM CHLORIDE 0.9 % (FLUSH) 10 ML SYRINGE 5 ML IVF ×2 (08:11→20:37)
--- NOTE | 2024-03-01 09:00 | P.IMPN_ITS ---
Progress Note: A&P Assessment and plan (1) Acute kidney injury: Problem details: - likely postrenal, 2/2 acute urinary retention/BPH - reassuring K, continue to follow lytes and renal function closely - hold nephrotoxic medications - Creatinine continues to trend downward, anticipate full normalization Status: Acute (2) Pulmonary embolism, bilateral: Problem details: - moderate clot burden, bilateral. Concern for R heart strain, reassuring TTE obtained (results below) - TTE, heparin gtt initiated - mild hypotension, asymptomatic. No tachycardia - will transition from heparin drip to Apixaban 03/01/2024 - TTE 02/29/24: Final Impressions: 1. Normal left ventricular size, normal wall thickness, normal global systolic function, calculated EF of 60 %. 2. Right ventricular cavity size is normal, global systolic RV function is normal. 3. Moderately enlarged left atrium. 4. The aortic valve is normal, trileaflet and sclerotic, no stenosis and mild regurgitation. 5. The mitral valve is normal, mild mitral regurgitation. 6. The inferior vena cava is normal sized, respiratory size variation less than 50%. 7. Normal estimated pulmonary pressures by tricuspid regurgitation velocity and right atrial pressure (15 mmHg plus RAP). Status: Acute (3) Bacteremia: Problem details: - on 03/01/24, + blood culture for GPC (urine culture growing GNRs) - on Ceftriaxone and Vancomycin, pharmacy dosing these given TERESA - afebrile, improving BP, no tachycardia, continue to follow blood cultures Status: Acute (4) Urinary tract infection: Problem details: - with associated leukocytosis, likely 2/2 acute urinary retention - given Ceftriaxone + Vancomycin x1 in ED, will continue both of these and follow culture results Status: Acute (5) Prostate enlargement: Problem details: - with resultant urinary retention - presumably source of urinary retention, consider initiation of Flomax when less hypotensive - 03/01/24: keep Thakur in at this time Status: Acute (6) Weakness: Problem details: - presumably 2/2 acute illness/UTI, PEs - therapies following Status: Acute Plan - per above - transitioning from heparin to Eliquis the evening of 03/01/2024 - updated at bedside, questions answered Subjective Date Seen: 03/01/24 Interval history: Vladimir was admitted last night for weakness in the setting of new bilateral PEs, TERESA (presumably post renal), urinary retention, significant leukocytosis (presumably 2/2 UTI). Since admission, he has had negative bilateral lower extremity ultrasounds for DVT, reassuring TTE, + Blood culture for GPC, + urine culture for GNR. He is on ceftriaxone and vancomycin for antibiotic therapy. He remains on a heparin drip, transitioning to oral Eliquis this evening. Vital signs are stable without severe hypotension (intermittently low blood pressures, improved with fluid bolus). He has no tachycardia or fever. This morning, patient has no concerns for hospitalist team. He has no pain. Appetite mildly low, but tolerating po intake. Working with therapies. Exam Narrative: Exam Narrative: GEN: Alert and oriented, laying comfortably in bed HEENT: EOMIs bilaterally, no scleral icterus CV: RRR, No concerning murmurs R: LCTA bilaterally without concerning wheezing Ab: soft, no ttp Ext: wwp, no concerning edema Skin: No concerning skin lesions or rashes on exposed skin Neuro: Nonfocal Psych: Appropriate Const: Vital Signs, click to edit/add: Vital Signs - 24 hr 02/29/24 09:36 02/29/24 09:45 02/29/24 10:01 Temperature Pulse Rate 74 70 Pulse Rate [Pulse Oximeter] Pulse Rate [Right Brachial] Pulse Rate [Right Pulse Oximeter] Respiratory Rate 14 16 Blood Pressure 99/52 L 95/52 L Blood Pressure [Le ft Upper Arm] Blood Pressure [Ri ght Arm] Pulse Oximetry 95 96 95 [facility] 02/29/24 10:32 02/29/24 11:01 02/29/24 11:32 Temperature Pulse Rate 69 69 67 Pulse Rate [Pulse Oximeter] Pulse Rate [Right Brachial] Pulse Rate [Right Pulse Oximeter] Respiratory Rate 14 16 14 Blood Pressure 103/47 L 96/61 96/46 L Blood Pressure [Le ft Upper Arm] Blood Pressure [Ri ght Arm] Pulse Oximetry 94 95 94 Oxygen Delivery Me thod 02/29/24 12:01 02/29/24 12:02 02/29/24 12:31 Temperature 98.1 F Pulse Rate 63 64 Pulse Rate [Pulse Oximeter] 74 Pulse Rate [Right Brachial] Pulse Rate [Right Pulse Oximeter] Respiratory Rate 16 16 Blood Pressure 91/47 L 92/46 L Blood Pressure [Le ft Upper Arm] 104/52 L Blood Pressure [Ri ght Arm] Pulse Oximetry 95 95 Oxygen Delivery Me thod 02/29/24 12:56 02/29/24 12:56 02/29/24 12:56 Temperature 97.8 F 97.8 F Pulse Rate Pulse Rate [Pulse Oximeter] Pulse Rate [Right Brachial] 62 62 Pulse Rate [Right Pulse Oximeter] Respiratory Rate 16 16 16 Blood Pressure Blood Pressure [Le ft Upper Arm] Blood Pressure [Ri ght Arm] 96/47 L 96/47 L Pulse Oximetry 95 95 95 Oxygen Delivery Me thod Room Air Room Air Room Air 02/29/24 15:00 02/29/24 15:00 02/29/24 15:00 Temperature 97.8 F Pulse Rate 71 Pulse Rate [Pulse Oximeter] Pulse Rate [Right Brachial] 92 Pulse Rate [Right Pulse Oximeter] Respiratory Rate 16 18 Blood Pressure Blood Pressure [Le ft Upper Arm] Blood Pressure [Ri ght Arm] 142/108 H Pulse Oximetry 94 94 Oxygen Delivery [facility] Room Air Room Air 02/29/24 19:00 02/29/24 22:27 02/29/24 22:27 Temperature 98.6 F Pulse Rate Pulse Rate [Pulse Oximeter] Pulse Rate [Right Brachial] 62 65 Pulse Rate [Right Pulse Oximeter] Respiratory Rate 16 18 16 Blood Pressure Blood Pressure [Le ft Upper Arm] Blood Pressure [Ri ght Arm] 90/49 L 86/47 L Pulse Oximetry 95 94 94 Oxygen Delivery [facility] Room Air Room Air Room Air 02/29/24 23:00 03/01/24 02:25 03/01/24 07:00 Temperature 97.8 F 98.6 F Pulse Rate 62 Pulse Rate [Pulse Oximeter] Pulse Rate [Right Brachial] 60 Pulse Rate [Right Pulse Oximeter] 59 L Respiratory Rate 16 18 Blood Pressure Blood Pressure [Le ft Upper Arm] Blood Pressure [Ri ght Arm] 91/54 L 96/61 Pulse Oximetry 93 94 [facility] Room Air Labs Labs: Laboratory Results - last 24 hr 02/29/24 02/29/24 02/29/24 09:36 09:56 10:55 WBC 36.98 H* RBC 3.58 L Hgb 11.1 L Hct 33.0 L MCV 92 MCH 31 MCHC 34 RDW Coeff of Yong 12.8 Plt Count 290 Neut % (Auto) 90.6 H Lymph % (Auto) 0.7 L [place] % (Auto) 5.1 Eos % (Auto) 0.0 Baso % (Auto) 0.1 Neut # (Auto) 33.50 H Lymph # (Auto) 0.30 L [place] # (Auto) 1.90 H Eos # (Auto) 0.00 Baso # (Auto) 0.00 Abs Immat Gran (auto) 1.30 H Imm/Tot Granulo (auto) 3.5 Diff Slide Review Acceptable Review INR 1.11 H APTT 33 Sodium 130 L Potassium 4.2 Chloride 103 Carbon Dioxide 17 L Anion Gap 10 BUN 104 H Creatinine 5.5 H Estimated Creat Clear 11.22 Estimated GFR 10 Glucose 129 H Lactate 1.8 Calcium 8.1 L Magnesium 2.6 Total Bilirubin 0.8 AST 52 H ALT 28 Alkaline Phosphatase 128 Troponin I 0.08 H* C-Reactive Protein 22.1 H NT-Pro-B Natriuret Pep 5780 Total Protein 5.7 L Albumin 2.9 L Urine Color Light yellow Urine Appearance Cloudy A Urine pH 5.5 Ur Specific [place] 1.010 Urine Protein 1+ A Urine Glucose (UA) Negative Urine Ketones Negative Urine Blood 2+ A Urine Nitrite Negative Urine Bilirubin Negative Urine Urobilinogen 0.2 Ur Leukocyte Esterase 3+ A Urine RBC 2-5 A Urine WBC >100 A Ur Squamous Epith Cells Few Urine Bacteria Moderate A SARS-CoV-2 (PCR) Negative SARS-CoV-2 Influenza Type A (PCR) Negative PCR FLU A Influenza Type B (PCR) Negative PCR FLU B RSV (PCR) Negative PCR RSV Lab Acknowledgement 02/29/24 02/29/24 03/01/24 14:54 18:10 00:15 WBC 35.50 H* RBC 3.60 L Hgb 11.1 L Hct 33.0 L MCV 92 MCH 31 MCHC 34 RDW Coeff of Yong 13.0 Plt Count 255 Neut % (Auto) 92.1 H Lymph % (Auto) 1.1 L [place] % (Auto) 4.2 Eos % (Auto) 0.0 Baso % (Auto) 0.0 Neut # (Auto) 32.70 H Lymph # (Auto) 0.40 L [place] # (Auto) 1.50 H Eos # (Auto) 0.00 Baso # (Auto) 0.00 Abs Immat Gran (auto) 0.90 H Imm/Tot Granulo (auto) 2.6 Diff Slide Review Acceptable Review INR 1.22 H APTT 71 H 65 H Sodium 133 L Potassium 4.1 Chloride 105 Carbon Dioxide 16 L Anion Gap 12 BUN 97 H Creatinine 4.7 H Estimated Creat Clear 13.53 Estimated GFR 12 Glucose 165 H Lactate Calcium 7.6 L Magnesium Total Bilirubin AST ALT Alkaline Phosphatase Troponin I 0.07 H* C-Reactive Protein NT-Pro-B Natriuret Pep Total Protein Albumin Urine Color Urine Appearance Urine pH Ur Specific [place] Urine Protein Urine Glucose (UA) Urine Ketones Urine Blood Urine Nitrite Urine Bilirubin Urine Urobilinogen Ur Leukocyte Esterase Urine RBC Urine WBC Ur Squamous Epith Cells Urine Bacteria SARS-CoV-2 (PCR) Influenza Type A (PCR) Influenza Type B (PCR) RSV (PCR) Lab Acknowledgement 03/01/24 03/01/24 05:51 07:12 WBC 27.22 H* RBC 3.38 L Hgb 10.5 L Hct 31.0 L MCV 92 MCH 31 MCHC 34 RDW Coeff of Yong 13.0 Plt Count 269 Neut % (Auto) 87.3 H Lymph % (Auto) 3.5 L [place] % (Auto) 7.9 Eos % (Auto) 0.1 Baso % (Auto) 0.1 Neut # (Auto) 23.80 H Lymph # (Auto) 1.00 [place] # (Auto) 2.20 H Eos # (Auto) 0.00 Baso # (Auto) 0.00 Abs Immat Gran (auto) 0.30 Imm/Tot Granulo (auto) 1.1 Diff Slide Review Acceptable Review INR APTT 49 H Sodium 138 Potassium 3.7 Chloride 109 Carbon Dioxide 19 L Anion Gap 10 BUN 84 H Creatinine 3.5 H Estimated Creat Clear 18.17 Estimated GFR 17 Glucose 105 Lactate Calcium 7.7 L Magnesium Total Bilirubin 0.2 AST 66 H ALT 31 Alkaline Phosphatase 108 Troponin I C-Reactive Protein NT-Pro-B Natriuret Pep Total Protein 5.3 L Albumin 2.6 L Urine Color Urine Appearance Urine pH Ur Specific [place] Urine Protein Urine Glucose (UA) Urine Ketones Urine Blood Urine Nitrite Urine Bilirubin Urine Urobilinogen Ur Leukocyte Esterase Urine RBC Urine WBC Ur Squamous Epith Cells Urine Bacteria SARS-CoV-2 (PCR) Influenza Type A (PCR) Influenza Type B (PCR) RSV (PCR) Lab Acknowledgement Test Added
--- NOTE | 2024-03-01 09:24 | NUTR.NU ---
RDN with nutrition screen related to positive skin risk. Patient admitted for TERESA, UTI+, and bilateral PEs. Patient had a left hemicolectomy done for new colon mass on 02/01/2024. Current weight 199lb 6.53oz; height 6ft; BMI 27.0 kg/m2. Weight history shows weight has been stable recently. MST score 1, not indicative of risk. Current diet is Regular. Meal intakes since admit have been adequate at 100%. With stable weight and adequate intakes, no nutrition interventions at this time. RDN will contiue to monitor and follow-up prn.
[2024-03-01] MEDS: cefTRIAXone 2 GM in 0.9 % SODIUM CHLORIDE Mini-bag 100 ML IVPB (11:05)
[2024-03-01 14:09] LABS: Partial Thromboplastin Time* 73 Seconds (23-33)
[2024-03-01 14:18] LABS: Chloride* 111 mmol/L (96-114); Potassium* 3.3 mmol/L (3.6-5.1); Sodium* 139 mmol/L (135-149)
[2024-03-01 14:21] LABS: Anion Gap 10 mEq/L (7-15); Carbon Dioxide* 18 mmol/L (20-32); Creatinine* 2.8 mg/dL (0.5-1.5); Est. Creatinine Clearance* 22.71; Estimated Glomerular Filt Rate 22 ml/min
[2024-03-01 14:22] LABS: Blood Urea Nitrogen* 74 mg/dL (7-30); Calcium* 7.8 mg/dL (8.4-10.6); Glucose* 137 mg/dL (60-115)
[2024-03-01] MEDS: PANTOPRAZOLE SODIUM 40 MG INJ IVP (15:17)
[2024-03-01] MEDS: POTASSIUM BICARB 25 MEQ EFFERVESCENT TAB PO (16:53)
--- NOTE | 2024-03-01 19:47 | PC.NURSE ---
[facility] Hours: [id number] Pt this shift alert and oriented, calm and cooperative. Flat affect most of day. No c/o pain, SOB, and no cough. LS clear. VSS on RA. Ambulating with Ax1 using walker and gait belt. Emptying large amounts of urine from waterman multiple times today. Eating most of meals. Cleaned and dressed R forearm skin tear. Heparan protocol followed, Lab draws scheduled per protocol. Tele showing sinus lilly with occasional PAC.
[2024-03-01 20:36] LABS: Partial Thromboplastin Time* 60 Seconds (23-33)
[2024-03-01] MEDS: APIXABAN 5 MG TABLET 10 MG PO (20:37)
--- NOTE | 2024-03-01 21:04 | PC.NURSE ---
Per , @ 2100 Hep ggt stopped. Oral Eliquis given. No Ptt ordered.
[2024-03-02] VITALS (8 sets, daily range): BP systolic 121–148; BP diastolic 50–99; PULSE 57–76; RESP 16; TEMP 36.6–37.2; O2SAT 94–96
[2024-03-02 07:16] LABS: Basophils Percent Auto 0.1 % (0.0-3.0); Eosinophils Percent Auto 0.5 % (0.0-7.0); Hematocrit 32.9 % (37.0-53.0); Hemoglobin* 10.8 gm/dL (13.5-17.5); Immature Granulocytes Pct Auto 0.8 %; Lymphocytes Percent Auto 5.3 % (20-44); Mean Corpuscular HGB Conc 33 gm/dL (32-36); Mean Corpuscular Hemoglobin 30 pg (26-34); Mean Corpuscular Volume 92 fL (80-100); Monocytes Percent Auto 7.1 % (0.0-11.0); Neutrophils Percent Auto 86.2 % (42.0-72.0); Platelet Count* 325 K/uL (140-440); RDW Coefficient of Variation % 13.1 % (11.5-15.5); Red Blood Count 3.58 m/uL (4.30-5.90); White Blood Count* 15.74 K/uL (4.50-11.00)
[2024-03-02 07:29] LABS: Albumin* 2.7 g/dL (3.3-5.0); Chloride* 111 mmol/L (96-114); Sodium* 139 mmol/L (135-149)
[2024-03-02 07:30] LABS: Potassium* 3.8 mmol/L (3.6-5.1)
[2024-03-02 07:32] LABS: Alkaline Phosphatase* 105 U/L (40-150); Anion Gap 7 mEq/L (7-15); Aspartate Amino Transferase* 72 U/L (12-35); Bilirubin Total* 0.3 mg/dL (0.1-1.5); Blood Urea Nitrogen* 62 mg/dL (7-30); Carbon Dioxide* 21 mmol/L (20-32); Est. Creatinine Clearance* 31.79; Estimated Glomerular Filt Rate 33 ml/min; Glucose* 99 mg/dL (60-115); Total Protein* 5.6 g/dL (6.0-8.3)
[2024-03-02 07:33] LABS: Alanine Aminotransferase* 43 U/L (4-50); Calcium* 7.6 mg/dL (8.4-10.6); Magnesium* 2.2 mg/dL (1.5-2.6)
[2024-03-02 07:35] LABS: Slide Review Reflex No
[2024-03-02] MEDS: APIXABAN 5 MG TABLET 10 MG PO ×2 (08:55→20:03)
[2024-03-02] MEDS: SODIUM CHLORIDE 0.9 % (FLUSH) 10 ML SYRINGE 5 ML IVF ×2 (08:56→20:04)
[2024-03-02] MEDS: cefTRIAXone 2 GM in 0.9 % SODIUM CHLORIDE Mini-bag 100 ML IVPB (10:02)
[2024-03-02] MEDS: OMEPRAZOLE 20 MG CAPSULE DR PO (11:47)
[2024-03-02] MEDS: TAMSULOSIN HCL 0.4 MG CAPSULE PO (11:47)
--- NOTE | 2024-03-02 13:22 | P.IMPN_ITS ---
Progress Note: A&P Assessment and plan (1) Bacteremia: Problem details: - on 03/01/24, + blood culture for GPC (urine culture growing Gram-positive cocci as well) - on Ceftriaxone - afebrile, improving BP, no tachycardia, continue to follow blood cultures Status: Acute (2) Urinary tract infection: Problem details: - with associated leukocytosis, likely 2/2 acute urinary retention - given Ceftriaxone + Vancomycin x1 in ED, will continue both of these and follow culture results Status: Acute (3) Weakness: Problem details: Much improved Status: Acute (4) Acute urinary retention: Problem details: New problem. Possibly due to BPH. Start Flomax. Consider trial of voiding. Refer to Urology. Status: Acute (5) Pulmonary embolism, bilateral: Problem details: - moderate clot burden, bilateral. Concern for R heart strain, reassuring TTE obtained (results below) - TTE, heparin gtt initiated - mild hypotension, asymptomatic. No tachycardia - will transition from heparin drip to Apixaban 03/01/2024 - TTE 02/29/24: Final Impressions: 1. Normal left ventricular size, normal wall thickness, normal global systolic function, calculated EF of 60 %. 2. Right ventricular cavity size is normal, global systolic RV function is normal. 3. Moderately enlarged left atrium. 4. The aortic valve is normal, trileaflet and sclerotic, no stenosis and mild regurgitation. 5. The mitral valve is normal, mild mitral regurgitation. 6. The inferior vena cava is normal sized, respiratory size variation less than 50%. 7. Normal estimated pulmonary pressures by tricuspid regurgitation velocity and right atrial pressure (15 mmHg plus RAP). Status: Acute (6) Acute kidney injury: Problem details: - likely postrenal, 2/2 acute urinary retention/BPH - reassuring K, continue to follow lytes and renal function closely - hold nephrotoxic medications - Creatinine continues to trend downward, anticipate full normalization Status: Acute (7) Type 2 NC (myocardial infarction): Problem details: Elevated troponins likely secondary to sepsis/PE. No ongoing cardiac symptoms. Status: Acute Plan Continue in hospital pending urine and blood culture results and clinical course. Time Spent With Patient Total time spent: Total time spent today is 55 minutes in coordination of care and discussing with patient and other providers management of UTI, bacteremia, PE. Subjective Date Seen: 03/02/24 Interval history: This 83-year-old male is brought in by EMS from home where he resides with his . He is brought in for weakness. He had an episode of shaking chills this morning and then went to get out of bed, when he went to get up out of bed, simply collapsed to the floor. There was no injuries, it was not of fall. His notes his appetite has been decreased the last few days, just wanted soft foods. He is having bowel movements but she feels his oral intake for both food and liquids has been diminish the last few days. They have not noted temperature. He is recuperating from a mass removal in his abdomen. 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 He reports that he has just been gradually getting worse over the past month. He did just complete Lovenox prophylaxis Monday of this week. They have not noted any cough or cold symptoms. He has no headache. He states he just feels terrible but cannot define it further than that. He denies any body aches, no arthralgias, no myalgias. He denies any abdominal pain. No nausea or vomiting currently. No urinary symptoms. Looking in his clinic notes, he was complaining of burping on February 18 on a clinic follow-up. He currently denies any pain. At the time of admission evaluation found to have moderate to large burden of pulmonary emboli bilaterally and a distended urinary bladder. He was started on IV heparin and then switched to Eliquis last night. He had a urinary catheter placed draining 2.6 L of urine from his bladder. He had acute kidney injury which continues to improve since placement of his urinary catheter. He has had positive blood in urine cultures. Initially thought to be Gram- negative rods in the urine now more likely Gram-positive cocci. Blood is Gram- positive cocci in chains. He has been treated with ceftriaxone 2 g daily and clinically improving. Today he reports no concerns. Reports feeling well. Exam Narrative: Exam Narrative: He is alert and appears in no distress. He is oriented to his circumstances. Speech is normal. Respirations are clear to auscultation. Cardiovascular: S1, S2, regular rate and rhythm. Abdomen: Bowel sounds active. Abdomen is soft without tenderness or mass. Abdominal incisions are well healed. Extremities with trace edema on the left and none on the right. Const: Vital Signs, click to edit/add: Vital Signs - 24 hr 03/01/24 15:00 03/01/24 15:00 03/01/24 15:00 Temperature 99.2 F Pulse Rate 57 L Pulse Rate [Right Brachial] Pulse Rate [Right Pulse Oximeter] 57 L Respiratory Rate 18 18 Blood Pressure [Ri ght Arm] 101/56 L Pulse Oximetry Oxygen Delivery Me thod 03/01/24 15:00 03/01/24 19:32 03/01/24 21:02 Temperature 98.4 F Pulse Rate 74 Pulse Rate [Right Brachial] 59 L Pulse Rate [Right Pulse Oximeter] 59 L Respiratory Rate 18 18 Blood Pressure [Ri ght Arm] 112/56 L Pulse Oximetry 95 93 Oxygen Delivery Me thod Room Air Room Air 03/01/24 22:18 03/01/24 22:22 03/01/24 22:23 Temperature 98.3 F Pulse Rate Pulse Rate [Right Brachial] 65 65 Pulse Rate [Right Pulse Oximeter] 65 65 Respiratory Rate 18 18 18 Blood Pressure [Ri ght Arm] 120/63 Pulse Oximetry 94 94 Oxygen Delivery Me thod Room Air Room Air 03/02/24 02:08 03/02/24 07:19 03/02/24 07:45 Temperature 98.7 F Pulse Rate 57 L Pulse Rate [Right Brachial] Pulse Rate [Right Pulse Oximeter] 60 Respiratory Rate 16 16 Blood Pressure [Ri ght Arm] 128/64 Pulse Oximetry 96 96 Oxygen Delivery Wy thod Room Air Room Air 03/02/24 07:45 03/02/24 07:45 03/02/24 12:00 Temperature 97.8 F 97.9 F Pulse Rate Pulse Rate [Right Brachial] Pulse Rate [Right Pulse Oximeter] 64 64 76 Respiratory Rate 16 16 16 Blood Pressure [Ri ght Arm] 121/72 138/72 Pulse Oximetry 96 96 Oxygen Delivery Me thod Room Air Room Air Documenting provider has reviewed patient's vital signs: yes Labs Labs: Laboratory Results - last 24 hr 03/01/24 03/01/24 03/02/24 13:47 19:44 05:43 WBC 15.74 H RBC 3.58 L Hgb 10.8 L Hct 32.9 L MCV 92 MCH 30 MCHC 33 RDW Coeff of Yong 13.1 Plt Count 325 Neut % (Auto) 86.2 H Lymph % (Auto) 5.3 L [place] % (Auto) 7.1 Eos % (Auto) 0.5 Baso % (Auto) 0.1 Neut # (Auto) 13.60 H Lymph # (Auto) 0.80 L [place] # (Auto) 1.10 H Eos # (Auto) 0.10 Baso # (Auto) 0.00 Abs Immat Gran (auto) 0.10 Imm/Tot Granulo (auto) 0.8 APTT 73 H 60 H Sodium 139 139 Potassium 3.3 L 3.8 Chloride 111 111 Carbon Dioxide 18 L 21 Anion Gap 10 7 BUN 74 H 62 H Creatinine 2.8 H 2.0 H Estimated Creat Clear 22.71 31.79 Estimated GFR 22 33 Glucose 137 H 99 Calcium 7.8 L 7.6 L Ionized Calcium Reena 1.00 L Magnesium 2.2 Total Bilirubin 0.3 AST 72 H ALT 43 Alkaline Phosphatase 105 Total Protein 5.6 L Albumin 2.7 L Vancomycin Trough 11.9
--- NOTE | 2024-03-02 18:16 | PC.NURSE ---
end of shift. pt has been pleasant. he is alert x4/ no pain. SL is patent. he had a shower. he is up with Ax1 using walker and gait belt. Thakur has been pleasant. he is eating, and drinking. dressed R forearm. he is on po blood thinners. IV antibiotics given. l. Tele showing sinus arrhythmia.
--- NOTE | 2024-03-02 18:30 | PC.NURSE ---
End of Shift: ([id number]): Patient pleasant and cooperative. Patient vitally stable, lungs clear, BS WNL, IV SL and intact. Patient independent in room and denies pain. Thakur intact and draining, urine is garrett in color, No BM during this shift. Patient tolerating regular diet but does not have much of an appetite. Patient has been comfortably in bed. Tele= Sinus James/Arrhythmia with BBB.
[2024-03-03 01:28] VITALS: BP 136/62; PULSE 62; RESP 16; TEMP 36.9; O2SAT 93
[2024-03-03 05:22] VITALS: BP 137/69; PULSE 62; RESP 16; TEMP 36.9; O2SAT 95
[2024-03-03 06:54] LABS: Chloride* 109 mmol/L (96-114); Potassium* 3.2 mmol/L (3.6-5.1); Sodium* 139 mmol/L (135-149)
--- NOTE | 2024-03-03 06:55 | PC.NURSE ---
End of shift ? Pt alert, oriented, cooperative. Not up during shift. Tolerating RA and regular diet/fluids. No pain reported, VSS, afebrile. Thakur catheter noted to be patent and draining. Pt observed to sleep during shift, appears to be resting comfortably at end of shift with call light within reach. ?
[2024-03-03 06:57] LABS: Anion Gap 5 mEq/L (7-15); Blood Urea Nitrogen* 35 mg/dL (7-30); Calcium* 8.1 mg/dL (8.4-10.6); Carbon Dioxide* 25 mmol/L (20-32); Creatinine* 1.4 mg/dL (0.5-1.5); Est. Creatinine Clearance* 45.42; Estimated Glomerular Filt Rate 50 ml/min; Glucose* 101 mg/dL (60-115)
[2024-03-03 07:00] VITALS: BP 137/72; PULSE 70; PULSE 73; RESP 16; TEMP 36.6; O2SAT 97
[2024-03-03 07:04] LABS: Basophils Absolute Auto 0.03 K/uL (0.00-0.30); Basophils Percent Auto 0.3 % (0.0-3.0); Eosinophils Percent Auto 0.9 % (0.0-7.0); Hemoglobin* 11.8 gm/dL (13.5-17.5); Immature Granulocytes Abs Auto 0.17 K/uL (0.00-0.30); Immature Granulocytes Pct Auto 1.5 %; Lymphocytes Percent Auto 8.8 % (20-44); Mean Corpuscular HGB Conc 33 gm/dL (32-36); Mean Corpuscular Hemoglobin 30 pg (26-34); Mean Corpuscular Volume 93 fL (80-100); Monocytes Percent Auto 7.6 % (0.0-11.0); Neutrophils Percent Auto 80.9 % (42.0-72.0); Platelet Count* 325 K/uL (140-440); RDW Coefficient of Variation % 12.8 % (11.5-15.5); Red Blood Count 3.88 m/uL (4.30-5.90); White Blood Count* 10.98 K/uL (4.50-11.00)
[2024-03-03 07:14] LABS: Slide Review Reflex No
[2024-03-03] MEDS: OMEPRAZOLE 20 MG CAPSULE DR PO (07:32)
[2024-03-03] MEDS: SODIUM CHLORIDE 0.9 % (FLUSH) 10 ML SYRINGE 5 ML IVF ×2 (08:44→19:56)
[2024-03-03] MEDS: TAMSULOSIN HCL 0.4 MG CAPSULE PO (08:44)
[2024-03-03] MEDS: APIXABAN 5 MG TABLET 10 MG PO ×2 (08:44→19:56)
[2024-03-03] MEDS: cefTRIAXone 2 GM in 0.9 % SODIUM CHLORIDE Mini-bag 100 ML IVPB (10:45)
[2024-03-03 11:00] VITALS: BP 147/65; PULSE 72; RESP 16; TEMP 36.8; O2SAT 95
[2024-03-03] MEDS: POTASSIUM BICARB 25 MEQ EFFERVESCENT TAB 50 MEQ PO (11:43)
[2024-03-03] MEDS: VANCOMYCIN 1.75 GM/350 ML 1.75 GM/350 ML PIGGYBACK IVPB (12:21)
[2024-03-03 15:00] VITALS: BP 145/68; PULSE 62; PULSE 64; RESP 16; TEMP 37.1; O2SAT 94
--- NOTE | 2024-03-03 15:20 | P.IMPN_ITS ---
Progress Note: A&P Assessment and plan (1) Sepsis: Problem details: Hypotension, acute kidney injury, leukocytosis, elevated troponin, likely related to pulmonary embolis and bacteremia Status: Acute (2) Bacteremia: Problem details: Blood culture from February 28 growing Enterococcus faecalis sensitive to ampicillin and other tested drugs. Has been on ceftriaxone for treatment. Transthoracic Echocardiogram showed no vegetations. Repeat blood culture has no growth so far. Continues to get better. Will switch to vancomycin, consult ID for outpatient antibiotic plan Status: Acute (3) Urinary tract infection: Problem details: Urine culture growing Enterococcus faecalis, sensitive to tested antibiotics, id consult for outpatient plan Status: Acute (4) Weakness: Problem details: Much improved. Possibly getting outpatient therapy. Status: Acute (5) Acute urinary retention: Problem details: New problem. Possibly due to BPH. On admission had 2.6 L of retained urine in his bladder. Start Flomax. Consider trial of voiding. Refer to Urology. Status: Acute (6) Pulmonary embolism, bilateral: Problem details: Pulmonary embolism 1 month postop colon resection for colon cancer. Echo is unremarkable. Initially treated with heparin and now apixaban. No hypoxia. Initially hypotensive now resolved Final Impressions: 1. Normal left ventricular size, normal wall thickness, normal global systolic function, calculated EF of 60 %. 2. Right ventricular cavity size is normal, global systolic RV function is normal. 3. Moderately enlarged left atrium. 4. The aortic valve is normal, trileaflet and sclerotic, no stenosis and mild regurgitation. 5. The mitral valve is normal, mild mitral regurgitation. 6. The inferior vena cava is normal sized, respiratory size variation less than 50%. 7. Normal estimated pulmonary pressures by tricuspid regurgitation velocity and right atrial pressure (15 mmHg plus RAP). Status: Acute (7) Acute kidney injury: Problem details: - likely postrenal, 2/2 acute urinary retention/BPH - reassuring K, continue to follow lytes and renal function closely - hold nephrotoxic medications - Creatinine continues to trend downward, anticipate full normalization Status: Acute (8) Type 2 VA (myocardial infarction): Problem details: Elevated troponins likely secondary to sepsis/PE. No ongoing cardiac symptoms. Status: Acute Plan Continue in hospital for ongoing evaluation management of multiple problems above. Probable discharge to home tomorrow. Will need urology follow-up, outpatient physical therapy, outpatient antibiotic therapy. Total time spent today is 40 minutes in coordination of care discussing with patient and ongoing management of above problems Subjective Date Seen: 03/03/24 Interval history: This 83-year-old male is brought in by EMS from home where he resides with his . He is brought in for weakness. He had an episode of shaking chills this morning and then went to get out of bed, when he went to get up out of bed, simply collapsed to the floor. There was no injuries, it was not of fall. His notes his appetite has been decreased the last few days, just wanted soft foods. He is having bowel movements but she feels his oral intake for both food and liquids has been diminish the last few days. They have not noted temperature. He is recuperating from a mass removal in his abdomen. 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 He reports that he has just been gradually getting worse over the past month. He did just complete Lovenox prophylaxis Monday of this week. They have not noted any cough or cold symptoms. He has no headache. He states he just feels terrible but cannot define it further than that. He denies any body aches, no arthralgias, no myalgias. He denies any abdominal pain. No nausea or vomiting currently. No urinary symptoms. Looking in his clinic notes, he was complaining of burping on February 18 on a clinic follow-up. He currently denies any pain. At the time of admission evaluation found to have moderate to large burden of pulmonary emboli bilaterally and a distended urinary bladder. He was started on IV heparin and then switched to Eliquis last night. He had a urinary catheter placed draining 2.6 L of urine from his bladder. He had acute kidney injury which continues to improve since placement of his urinary catheter. He has had positive blood in urine cultures. Initially thought to be Gram- negative rods in the urine now more likely Gram-positive cocci. Blood is Gram- positive cocci in chains. He has been treated with ceftriaxone 2 g daily and clinically improving. Today he reports no concerns. Reports feeling well. 03/03/2024: Patient reports generally feeling well. No new concerns today. Blood and urine cultures came back showing ampicillin sensitive Enterococcus faecalis. Exam Narrative: Exam Narrative: He is alert and appears in no distress. Breathing is unlabored. Abdomen is soft without tenderness or mass. Catheter in place. Const: Vital Signs, click to edit/add: Vital Signs - 24 hr 03/02/24 16:35 03/02/24 16:35 03/02/24 16:35 Temperature 98.9 F Pulse Rate Pulse Rate [Right Pulse Oximeter] 76 60 Respiratory Rate 16 16 16 Blood Pressure [Ri ght Arm] 148/50 H Pulse Oximetry 96 94 Oxygen Delivery Me thod Room Air Room Air 03/02/24 21:42 03/02/24 22:54 03/02/24 22:54 Temperature 98.5 F Pulse Rate 57 L Pulse Rate [Right Pulse Oximeter] 60 Respiratory Rate 16 Blood Pressure [Ri ght Arm] 138/99 H Pulse Oximetry 95 95 Oxygen Delivery Me thod Room Air Room Air 03/03/24 01:28 03/03/24 05:22 03/03/24 07:00 Temperature 98.4 F 98.5 F Pulse Rate Pulse Rate [Right Pulse Oximeter] 62 62 Respiratory Rate 16 16 Blood Pressure [Ri ght Arm] 136/62 137/69 Pulse Oximetry 93 95 97 Oxygen Delivery Me thod Room Air Room Air Room Air 03/03/24 07:00 03/03/24 07:00 03/03/24 07:00 Temperature 97.8 F Pulse Rate 73 Pulse Rate [Right Pulse Oximeter] 70 70 Respiratory Rate 16 16 Blood Pressure [Ri ght Arm] 137/72 Pulse Oximetry 97 Oxygen Delivery Me thod Room Air 03/03/24 11:00 Temperature 98.3 F Pulse Rate Pulse Rate [Right Pulse Oximeter] 72 Respiratory Rate 16 Blood Pressure [Ri ght Arm] 147/65 H Pulse Oximetry 95 Oxygen Delivery Me thod Room Air Documenting provider has reviewed patient's vital signs: yes Labs Labs: Laboratory Results - last 24 hr 03/03/24 03/03/24 05:46 06:55 WBC 10.98 RBC 3.88 L Hgb 11.8 L Hct 36.0 L MCV 93 MCH 30 MCHC 33 RDW Coeff of Yong 12.8 Plt Count 325 Neut % (Auto) 80.9 H Lymph % (Auto) 8.8 L [place] % (Auto) 7.6 Eos % (Auto) 0.9 Baso % (Auto) 0.3 Neut # (Auto) 8.90 H Lymph # (Auto) 1.00 [place] # (Auto) 0.80 Eos # (Auto) 0.10 Baso # (Auto) 0.03 Abs Immat Gran (auto) 0.17 Imm/Tot Granulo (auto) 1.5 Sodium 139 Potassium 3.2 L Chloride 109 Carbon Dioxide 25 Anion Gap 5 L BUN 35 H Creatinine 1.4 Estimated Creat Clear 45.42 Estimated GFR 50 Glucose 101 Calcium 8.1 L Lab Acknowledgement Test Added
--- NOTE | 2024-03-03 19:54 | PC.NURSE ---
End of Shift: Patient pleasant and cooperative. Afebrile. Denies pain. Up to chair and walking in hallway with SBA, walker and gait belt. Tolerating regular diet with no nausea. Thakur patent with straw to pink tinged urine, aware.
[2024-03-03 21:27] VITALS: BP 120/64; PULSE 70; RESP 18; TEMP 37.3; O2SAT 97
[2024-03-04 00:39] VITALS: PULSE 63; O2SAT 97
[2024-03-04 02:35] VITALS: BP 137/80; PULSE 66; RESP 16; TEMP 36.5; O2SAT 96
[2024-03-04] MEDS: ACETAMINOPHEN 325 MG TABLET 975 MG PO (04:01)
[2024-03-04 04:21] VITALS: BP 143/58; PULSE 60; RESP 16; TEMP 37.1; O2SAT 94
[2024-03-04 06:57] LABS: Chloride* 108 mmol/L (96-114); Potassium* 3.4 mmol/L (3.6-5.1); Sodium* 140 mmol/L (135-149)
[2024-03-04 07:00] LABS: Anion Gap 7 mEq/L (7-15); Blood Urea Nitrogen* 24 mg/dL (7-30); Carbon Dioxide* 25 mmol/L (20-32); Creatinine* 1.2 mg/dL (0.5-1.5); Est. Creatinine Clearance* 52.99; Estimated Glomerular Filt Rate 61 ml/min
[2024-03-04 07:01] LABS: Calcium* 8.2 mg/dL (8.4-10.6); Glucose* 109 mg/dL (60-115)
[2024-03-04 07:15] VITALS: PULSE 59
--- NOTE | 2024-03-04 07:31 | PC.NURSE ---
-End of shift - - Pt alert, oriented, cooperative. Up independently in room, managing catheter efficiently. Tolerated RA and regular diet/fluids. Reported pain in low back during shift. Given medication per MAR and aqua K heating pad with pt reporting improved comfort. Thakur catheter noted to be patent and draining. Pt appears to be resting comfortably in bed at end of shift with call light within reach.
[2024-03-04] MEDS: TAMSULOSIN HCL 0.4 MG CAPSULE PO (08:53)
[2024-03-04] MEDS: APIXABAN 5 MG TABLET 10 MG PO (08:53)
[2024-03-04] MEDS: SODIUM CHLORIDE 0.9 % (FLUSH) 10 ML SYRINGE 5 ML IVF (08:54)
[2024-03-04 08:55] VITALS: BP 120/65; PULSE 79; RESP 14; TEMP 36.6; O2SAT 97
--- NOTE | 2024-03-04 09:48 | REH.OT ---
Attempted to see Vladimir this morning for OT session. He reports he's waiting on his breakfast, and would prefer spouse be in attendance to learn more with dressing techniques and managing Thakur with dressing. Asks that OT return later.
[2024-03-04] MEDS: POTASSIUM BICARB 25 MEQ EFFERVESCENT TAB PO (10:02)
[2024-03-04] MEDS: AMOXICILLIN 250 MG CAPSULE 1000 MG PO (10:02)
--- NOTE | 2024-03-04 10:10 | PC.SOCIAL ---
Discharge planning: Pt will be able to discharge home with his with outpatient physical therapy. Pt's will be provided catheter care instructions from pt's nurse. No other identified needs at this time. Social work to follow-up as needed.
--- NOTE | 2024-03-04 11:51 | PC.NURSE ---
Discharge: Patient pleasant and cooperative. Patient vitally stable, lungs clear, BS WNL, IV removed, catheter intact. Patient independent with walker and rates back pain 2/10, declined tylenol. Patient tolerating regular but reported he lost his appetite this morning. Education regarding waterman bag and leg bag given to patient and spouse. Patient waterman bag was removed and replaced with a leg bag, waterman back was sent home with patient. Patient signed belongings sheet and discharge form. Questions patient's spouse had were answered. Patient left the floor by wheelchair to home at 1140.
--- NOTE | 2024-03-04 13:21 | P.DS_ITS ---
DS: Providers Provider Date Seen: 03/04/24 Date of admission: 02/29/24 14:04 Primary care physician: Hansel Magana MD Admitting Clinician: Amee Cain MD Attending Physician on discharge: Senthil Paniagua MD Date of Discharge: 03/04/24 DS: Diagnosis Discharge Diagnosis (1) Sepsis: Status: Acute Problem details: Hypotension, acute kidney injury, leukocytosis, elevated troponin, likely related to pulmonary embolis and bacteremia (2) Bacteremia: Status: Acute Problem details: Blood culture from February 28 growing Enterococcus faecalis sensitive to ampicillin and other tested drugs. Has been on ceftriaxone for treatment. Transthoracic Echocardiogram showed no vegetations. Repeat blood culture has no growth so far. Continues to get better. Will treat with 7 days of amoxicillin to complete treatment for Enterococcus bacteremia per ID recommendation (3) Urinary tract infection: Status: Acute Problem details: Urine culture growing Enterococcus faecalis, sensitive to tested antibiotics, 7 days of amoxicillin to complete antibiotic course per ID recommendation (4) Weakness: Status: Acute Problem details: Much improved. Refer to outpatient therapy (5) Acute urinary retention: Status: Acute Problem details: New problem. Possibly due to BPH. On admission had 2.6 L of retained urine in his bladder. Start Flomax. Consider trial of voiding. Refer to Urology. (6) Pulmonary embolism, bilateral: Status: Acute Problem details: Pulmonary embolism 1 month postop colon resection for colon cancer. Echo is unremarkable. Initially treated with heparin and now apixaban. No hypoxia. Initially hypotensive now resolved Final Impressions: 1. Normal left ventricular size, normal wall thickness, normal global systolic function, calculated EF of 60 %. 2. Right ventricular cavity size is normal, global systolic RV function is normal. 3. Moderately enlarged left atrium. 4. The aortic valve is normal, trileaflet and sclerotic, no stenosis and mild regurgitation. 5. The mitral valve is normal, mild mitral regurgitation. 6. The inferior vena cava is normal sized, respiratory size variation less than 50%. 7. Normal estimated pulmonary pressures by tricuspid regurgitation velocity and right atrial pressure (15 mmHg plus RAP). (7) Acute kidney injury: Status: Acute Problem details: Creatinine at baseline is 0.8. Creatinine 5.5 on admission secondary to sepsis, hypotension, bladder outlet obstruction. Creatinine on discharge is 1.2 (8) Type 2 GA (myocardial infarction): Status: Acute Problem details: Elevated troponins likely secondary to sepsis/PE. No ongoing cardiac symptoms. (9) Impaired gait: Status: Acute Problem details: Referred for outpatient PT DS: Summary Hospital Course Hospital Course: This 83-year-old male is brought in by EMS from home where he resides with his . He is brought in for weakness. He had an episode of shaking chills this morning and then went to get out of bed, when he went to get up out of bed, simply collapsed to the floor. There was no injuries, it was not of fall. His notes his appetite has been decreased the last few days, just wanted soft foods. He is having bowel movements but she feels his oral intake for both food and liquids has been diminish the last few days. They have not noted temperature. He is recuperating from a mass removal in his abdomen. 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 He reports that he has just been gradually getting worse over the past month. He did just complete Lovenox prophylaxis Monday of this week. They have not noted any cough or cold symptoms. He has no headache. He states he just feels terrible but cannot define it further than that. He denies any body aches, no arthralgias, no myalgias. He denies any abdominal pain. No nausea or vomiting currently. No urinary symptoms. Looking in his clinic notes, he was complaining of burping on February 18 on a clinic follow-up. He currently denies any pain. At the time of admission evaluation found to have moderate to large burden of pulmonary emboli bilaterally and a distended urinary bladder. He was started on IV heparin and then switched to Eliquis. He had a urinary catheter placed draining 2.6 L of urine from his bladder. He had acute kidney injury which continues to improve since placement of his urinary catheter. He had positive urine culture and positive blood culture subsequently identifying Enterococcus faecalis sensitive to ampicillin. He was treated with ceftriaxone 2 g daily with clinical improvement. Went Enterococcus was identified he was switched to vancomycin and now will be switched to amoxicillin for 1 week of treatment outpatient based on recommendations from Infectious Disease consult. Status at Discharge Functional status at discharge: independent ambulation Overall status at discharge: patient is progressing back to baseline Time Spent with Patient Time attestation: Total time spent providing and/or coordinating discharge services: 35 minutes Time spent: Greater than 30 minutes Exam Narrative: Exam Narrative: He is alert and appears in no distress. Ambulating fairly well. Breathing is unlabored. Const: Vital Signs, click to edit/add: Vital Signs - 24 hr 03/03/24 15:00 03/03/24 15:00 03/03/24 15:00 Temperature 98.7 F Pulse Rate Pulse Rate [Right Pulse Oximeter] 64 64 Respiratory Rate 16 16 Blood Pressure [Le ft Arm] Blood Pressure [Ri ght Arm] 145/68 H Pulse Oximetry 94 94 Oxygen Delivery Me thod Room Air Room Air 03/03/24 15:00 03/03/24 21:27 03/04/24 00:39 Temperature 99.1 F Pulse Rate 62 63 Pulse Rate [Right Pulse Oximeter] 70 Respiratory Rate 18 Blood Pressure [Le ft Arm] Blood Pressure [Ri ght Arm] 120/64 Pulse Oximetry 97 Oxygen Delivery Me thod Room Air 03/04/24 00:39 03/04/24 02:35 03/04/24 04:21 Temperature 97.7 F 98.7 F Pulse Rate Pulse Rate [Right Pulse Oximeter] 66 60 Respiratory Rate 16 16 Blood Pressure [Le ft Arm] 143/58 H Blood Pressure [Ri ght Arm] 137/80 Pulse Oximetry 97 96 94 Oxygen Delivery Me thod Room Air Room Air Room Air 03/04/24 07:15 03/04/24 08:55 03/04/24 08:55 Temperature 97.9 F Pulse Rate 59 L Pulse Rate [Right Pulse Oximeter] 79 79 Respiratory Rate 14 14 Blood Pressure [Le ft Arm] Blood Pressure [Ri ght Arm] 120/65 Pulse Oximetry 97 Oxygen Delivery Al thod Room Air 03/04/24 08:55 Temperature Pulse Rate Pulse Rate [Right Pulse Oximeter] Respiratory Rate Blood Pressure [Le ft Arm] Blood Pressure [Ri ght Arm] Pulse Oximetry 97 Oxygen Delivery Me thod Room Air Documenting provider has reviewed patient's vital signs: yes DS: Data Data Completed and Pending Completed studies during hospitalization: Procedures Resection of Left Large Intestine, Percutaneous Endoscopic Approach (01/30/24) Labs on day of discharge: Labs from last 24 hours 03/04/24 03/01/24 06:05 20:53 Sodium 140 Potassium 3.4 L Chloride 108 Carbon Dioxide 25 Anion Gap 7 BUN 24 Creatinine 1.2 Estimated Creat Clear 52.99 Estimated GFR 61 Glucose 109 Calcium 8.2 L Stl C. diff Tox B Gene Cancelled Stl C. diff [id number] Cancelled Preliminary micro results at discharge 03/02/24 05:43 Blood Culture - Preliminary Blood NO GROWTH AFTER 48 HOURS 03/03/24 05:46 Blood Culture - Preliminary Blood NO GROWTH AFTER [address] Chest/Ab/Pelvis: Radiologist's impression: INDICATION: Weakness. Abdominal distension. Decreased appetite. COMPARISON: A similar examination dated December 17, 2023 TECHNIQUE: CT examination of the chest, and pelvis was performed following the uneventful intravenous administration of 108 cc of Isovue 3 7. Thin section axial images were obtained from the thoracic inlet through the pubic symphysis. Oral contrast was not administered. Sagittal and coronal reformatted imaging was performed Please note that all CT scans at this facility use dose modulation, iterative reconstruction, and/or weight-based dosing when appropriate to reduce radiation dose to as low as reasonably achievable. FINDINGS: CHEST: The heart size is top-normal. There is no mediastinal or hilar adenopathy or mass. No pericardial effusion Not timed for the pulmonary artery distribution though there is a moderate large clot burden pulmonary embolus mainly involving the lower lobes. There is a faint suggestion of upper lobe involvement as well. The RV/LV ratio is elevated at 1.2 indicating right heart strain. Of note, the patient did have mildly elevated RV to LV ratio at 1.0 on the prior study when he did not have a PE. However, it is worse on the current exam. Lung windows reveal trace basilar atelectasis. No pleural effusion or pneumothorax. There is a 1 centimeter nodule at the left lung base which was present December 17, 2023 and should be further evaluated in this patient with a history of malignancy. ABDOMEN AND PELVIS: LIVER/BILIARY SYSTEM:The liver is normal in size and configuration. There is no focal mass and there is no intra- or extra hepatic biliary ductal dilatation.Steatosis. Cholelithiasis. No evidence of acute cholecystitis or common duct obstruction ADRENALS: Normal KIDNEYS, URETERS and BLADDER:There are bilateral renal cysts. There is severe hydronephrosis and hydroureter due to a distended bladder. The bladder is distended due to an enlarged prostate. The bladder measures about 23 centimeters craniocaudal. SPLEEN:Normal appearance. PANCREAS: Appears normal. RETROPERITONEUM and MESENTERY: There is no mass, adenopathy or aortic aneurysm. Atherosclerotic vascular calcification GASTROINTESTINAL SYSTEM: There is no evidence of diverticulitis, colitis, mechanical obstruction, or appendicitis. The small bowel as visualized appears normal.No acute appearing GI findings. Fluid around the rectum is probably related to inflammatory change from the adjacent prostate and bladder rather than due to proctitis. There are postsurgical changes related to partial colon resection PELVIS: Abnormal bladder and prostate as mentioned above. OSSEOUS STRUCTURES and ABDOMINAL WALL: There is an age-appropriate appearance of the osseous structures.No significant abdominal wall defect. OTHER: No free fluid or free air. Discussed with Dr. Taveras at 11 a.m. on February 29, 2024 IMPRESSION: 1. CHEST: Not timed for the pulmonary artery distribution though there is a moderate to large clot burden pulmonary embolus primarily involving the lower lobes. There is evidence of right heart strain with an RV/LV ratio of 1.2. Bibasilar atelectasis. Redemonstration of a 1 centimeter left lower lobe nodule unchanged since December 17, 2023. 2. ABDOMEN AND PELVIS: Significant hydronephrosis and hydroureter due to a distended bladder. The bladder measures 23 centimeters in craniocaudal dimension. This represents bladder outlet obstruction probably due to a markedly enlarged prostate which measures 6.1 x 7.8 x 7.8 centimeters. Other nonacute appearing findings in the abdomen and pelvis as discussed in the body of the report Venous US: Radiologist's impression: INDICATION: Pulmonary emboli TECHNIQUE: Ultrasound venous duplex lower extremity bilateral. Compression venous exam was performed using allan-scale, color Doppler, and spectral Doppler imaging. COMPARISON: None. FINDINGS: Sonographic imaging demonstrates the common femoral, deep femoral, superficial femoral, popliteal, posterior tibial and greater saphenous veins to be fully compressible with normal color Doppler blood flow in both lower extremities. Complex avascular collection with septations in the right popliteal fossa measuring 4.0 x 2.9 x 6.6 centimeters. IMPRESSION: 1. No evidence of deep venous thrombosis bilateral lower extremities. 2. Complex collection within the right popliteal fossa measuring up to 6.6 centimeters. Etiology of this lesion is indeterminate although suspect this represents a complex Olivier`s cyst. Differential would include seroma or evolving hematoma. Complex cystic soft tissue lesion not entirely excluded on the basis of this study although considered unlikely. Discharge Plan Discharge Disposition: Home, Self-Care Date of Admission: 02/29/24 14:04 Attending Provider on Discharge: Amador Paniagua Consulting Providers: Monica Ricketts; Jahaira Cleveland Primary Care Provider: Hansel Magana Condition: Improved Anticipated Discharge Date/Time: 03/04/24 09:15 Discharge Medications: New Eliquis 5 mg Tablet 10 mg PO BID Qty: 68 0RF Rx Instructions: Take 2 tablets twice a day for 4 days then 1 tablet twice a day indefinitely tamsulosin 0.4 mg Capsule 0.4 mg PO DAILY Qty: 30 0RF amoxicillin 500 mg capsule 1,000 mg PO BID Qty: 28 0RF Continued amlodipine 10 mg tablet 10 mg PO DAILY Qty: 90 3RF simvastatin 20 mg tablet 20 mg PO QPM Qty: 90 3RF Discontinued chlorthalidone 25 mg tablet 25 mg PO DAILY Qty: 90 3RF lisinopril 20 mg tablet 20 mg PO DAILY Qty: 90 3RF Discharge Orders: Discharge Order (Routine); Ordered 03/04/24 Ordered By: Amador Paniagua Patient Education: Amoxicillin (By mouth), Tamsulosin (By mouth), Apixaban (By mouth), Pulmonary Embolism (DC), Thakur Catheter Placement and Care (ED), How to Change a Catheter Drainage Bag (DC) Additional Instructions: You have 3 new medications: Tamsulosin or Flomax to help you empty your bladder, Eliquis or apixaban to treat blood clots and amoxicillin to treat your infection. You will probably need the tamsulosin and Eliquis as long-term medications. The amoxicillin is for 1 week. We stopped your blood pressure medications because your blood pressure was low and your kidneys were failing. Your blood pressure is now better and your kidneys are better. We will restart your amlodipine but still hold your chlorthalidone and lisinopril until you see your doctor next week. You will need to see a urologist about your problem with urinary retention and catheter. You can set up an appointment with [facility] or ask your doctor to help set up an appointment. Activity Level: Activity as Tolerated Discharge Diet: Regular Follow Up Appointments: [facility] [Provider Group] (You should receive a call to [facility] either at the location in [place] or [place].) Hansel Magana MD [Primary Care Provider] - 03/11/24 2:15 pm ([facility] for recheck of your infection, pulmonary embolism, blood pressure, labs for basic metabolic panel.) Forms: [facility] Info Instructions Discharge Comments: Outpatient PT evaluation and treatment
== END 2024-03-04 11:40 | disposition home or self-care (01) | DRG 871 ==
LOC: ED 11:07 → MEDSURG 12:12
PROVIDERS: Family Medicine; Admitting Provider Family Medicine; Emergency Provider Family Medicine; PCP Family Medicine; Visit Provider Family Medicine
DX: A41.81 Sepsis due to Enterococcus (principal); I21.A1 Myocardial infarction type 2; I26.99 Other pulmonary embolism without acute cor pulmonale; N39.0 Urinary tract infection, site not specified; N17.9 Acute kidney failure, unspecified; C18.6 Malignant neoplasm of descending colon; N40.1 Benign prostatic hyperplasia with lower urinary tract symptoms; R33.8 Other retention of urine; B95.2 Enterococcus as the cause of diseases classified elsewhere; R53.1 Weakness; R26.89 Other abnormalities of gait and mobility
CPT/HCPCS: 36415; 71260; 74177; 80048; 80053; 80202; 81001; 82330; 83605; 83735; 83880; 84484; 85025; 85027; 85610; 85730; 86140; 87040; 87086; 87186; 87493; 87631; 93005; 93306; 93970; 94761; 97110; 97116; 97162; 97165; 97530; 97535; 99285; A9270; J0696; J1644; J2470; J3372; J7030; J7050; Q9967

== ENCOUNTER 2024-03-11 15:24 | Outpatient (CLI) | payer MEDICARE, SELFPAY | END 2024-03-11 15:25 | disposition home or self-care (01) | LOC: NFLDREF 15:27 | PROVIDERS: PCP Family Medicine; Visit Provider Family Medicine | DX: N17.9 Acute kidney failure, unspecified (principal) | CPT/HCPCS: 80048 ==

== ENCOUNTER 2024-03-29 10:00 | Outpatient (RCR) | payer MEDICARE, SELFPAY ==
--- NOTE | 2024-03-12 15:24 | PT.OPE ---
PT [place] Outpatient Eval PT [facility] Outpatient Eval Start: 03/12/24 11:43 Freq: Status: Active Protocol: Document 03/12/24 15:17 KWABENAT (Rec: 03/12/24 15:19 KENIA [id number]) E-signed By You Chawla PT Physical Therapy Outpatient Evaluation Insurance Information Recert Due Date 06/10/24 Insurance Name Medicare B Medical Diagnosis Gait imbalance and weakness Treating Diagnosis Unsteadiness on feet generalized weakness Referring Hansel Roman Subjective Preferred Name Vladimir Marroquin Pt presents for evaluation and treatment of gait imbalance and weakness. Pt recently attended [place] [facility] via ambulance after falling to the floor in his bedroom due to weakness. It was found that this weakness was the results of a UTI that lead to severe dehydration. Pt spent 4 nights at [facility] and has been quite weak since returning home although he and his note that he has improved daily. Is able to go up/down steps with use of B handrails at home. Bedroom up stairs. Has another bedroom on main level if needed and likes to sleep in recliner at this time due to catheter. Has appointment next week to meet with urologist. Hoping to get to remove catheter at that time. Pt would like to be able to transfer and ambulate without fear of falling. At baseline, pt was ambulating without use of a walker. Presents with FWW today which was given to him upon d/c from hospital. Pt feels he could walk about 15 minutes without resting at this time. Pt had mass removed from large colon on 01/31/24. Pain Comments -06/06, low back Date of Last Physician Visit 03/11/24 Current Work Status Retired Precautions Treatment Precautions/Contraindications Anemia (Acute) D64.9 - Anemia, unspecified ( ICD-10) Impaired gait (Acute) Referred for outpatient PT R26.9 - Unspecified abnormalities of gait and mobility (ICD-10) Sepsis (Acute) Hypotension, acute kidney injury, leukocytosis, elevated troponin, likely related to pulmonary embolis and bacteremia A41.9 - Sepsis, unspecified organism (ICD-10) Type 2 CT (myocardial infarction) (Acute) Elevated troponins likely secondary to sepsis/PE. No ongoing cardiac symptoms. I21.A1 - Myocardial infarction type 2 (ICD-10) Bacteremia (Acute) Blood culture from February 28 growing Enterococcus faecalis sensitive to ampicillin and other tested drugs. Has been on ceftriaxone for treatment. Transthoracic Echocardiogram showed no vegetations. Repeat blood culture has no growth so far. Continues to get better. Will treat with 7 days of amoxicillin to complete treatment for Enterococcus bacteremia per ID recommendation R78.81 - Bacteremia (ICD-10) Weakness (Acute) Much improved. Refer to outpatient therapy R53.1 - Weakness (ICD-10) Urinary tract infection (Acute ) Urine culture growing Enterococcus faecalis, sensitive to tested antibiotics, 7 days of amoxicillin to complete antibiotic course per ID recommendation N39.0 - Urinary tract infection, site not specified (ICD-10) Acute urinary retention (Acute ) New problem. Possibly due to BPH. On admission had 2.6 L of retained urine in his bladder. Start Flomax. Consider trial of voiding. Refer to Urology. R33.8 - Other retention of urine (ICD-10) Prostate enlargement (Acute) - with resultant urinary retention - presumably source of urinary retention, consider initiation of Flomax when less hypotensive - 03/01/24: keep Thakur in at this time N40.0 - Benign prostatic hyperplasia without lower urinary tract symptoms (ICD-10 ) Pulmonary embolism, bilateral (Acute) Pulmonary embolism 1 month postop colon resection for colon cancer. Echo is unremarkable. Initially treated with heparin and now apixaban. No hypoxia. Initially hypotensive now resolved Final Impressions: 1. Normal left ventricular size, normal wall thickness, normal global systolic function, calculated EF of 60 %. 2. Right ventricular cavity size is normal, global systolic RV function is normal . 3. Moderately enlarged left atrium. 4. The aortic valve is normal, trileaflet and sclerotic, no stenosis and mild regurgitation. 5. The mitral valve is normal, mild mitral regurgitation. 6. The inferior vena cava is normal sized, respiratory size variation less than 50%. 7. Normal estimated pulmonary pressures by tricuspid regurgitation velocity and right atrial pressure (15 mmHg plus RAP). I26.99 - Other pulmonary embolism without acute cor pulmonale (ICD-10) Acute kidney injury (Acute) Creatinine at baseline is 0.8. Creatinine 5.5 on admission secondary to sepsis, hypotension, bladder outlet obstruction. Creatinine on discharge is 1.2 N17.9 - Acute kidney failure, unspecified (ICD-10) Hyperlipidemia (Acute) E78.5 - Hyperlipidemia, unspecified (ICD-10) HTN (hypertension) (Acute) I10 - Essential (primary) hypertension (ICD-10) Therapy Limitations/Systems Review Not Limited Objective Other/Pertinent Objective R hip flexion: 4/5 MMT R knee flexion: 5/5 R knee extension: 5/5 R ankle DF: 4+/5 L hip flexion: 4/5 L knee flexion: 5/5 L knee extension: 4+/5 L ankle DF: 4/5 4-Stage Balance Test Stage I (NBOS): minimal sway Stage II (in-step): minimal sway Stage III (tandem): able to complete after several attempts, LOB bilaterally Stage IV (single leg): unable to stand >4 seconds on either leg Timed Up and Go (TUG): 13.5 seconds 5 Times Buo-jj-[id number]: 14.43 seconds 30-Second [id number]: 11 repetitions 6-Minute Walk Test: pt requests to stop at 4:26. Pt also required 60 second rest break in standing at 2:43 -Distance at 2 minutes, 43 seconds: 564 ft -Final distance: 705 ft Assessment Assessment/Impression Harvinder is a very pleasant 83 year old male who presents to our clinic for evaluation and treatment of generalized weakness following a 4-day stay at [facility] secondary to weakness due to UTI and dehydration. Pts exam went quite well today scoring just below average in many of today's functional strength and balance exercises (see objective). I expect to see weekly improvements in Harvinder's strength and function as he continues to heal and return back to baseline. The nature of the pts condition was explained and all questions were answered to the pts satisfaction. Skilled PT services are medically necessary to address deficits and return patient to highest level of function. Recommend physical therapy sessions 1-2/ week for 4-6 weeks. Pt agrees with this plan. Printout of HEP was given for I completion and pt gives verbal understanding of each exercise . Primary Functional Limitations Walking, balance, stairs Plan of Care Rehabilitation Potential Good Physical Therapy Goals STG - To be completed in 4 weeks: 1. Pt will demo ability to ambulate at least 6 minutes without rest so that he may go for short walks with his for light level exercise with improved confidence and cardiorespiratory endurance. 2. Pt will perform at least 12 sit to stands in 30 seconds or less as indication of improved LE muscular strength and endurance. LTG - To be completed in 6 weeks: 1. Pt to be I with HEP so that they may I manage progression of symptoms. 2. Pt will perform TUG in 12 seconds as indication of improved mobility to reduce his risk of falls. 3. Pt will demo ability to balance on 1 leg for at least 5 seconds to indicate improved balance and reduce fall risk. Treatment Plan/Direct Interventions Gait Training,Joint Mobilization,Manual Therapy, Neuromuscular Re-ed,Self-Care/ Home Management,Therapeutic Activities,Therapeutic Exercises Frequency/Duration 1-2/week for 4-6 weeks Patient Will Be Discharged From Therapy Completion of LTG(s),Skills Plateau,Independent w/HEP, Independently Progressing Evaluation Billing Untimed Code Treatment Minutes 43 PT Eval No Charge No Complexity Low Certification Information Initial Certification Date 03/12/24 Ending Certification Date 06/10/24 Provider Signature Required Yes Provider Signature Shows Agreement With POC & Medical Necessity Physician NPI Number Write NPI# Here Physician Comment/Change : Physician Signature & Date Requested Please Sign/Date Here
== END 2024-06-26 07:49 | disposition home or self-care (01) ==
PROVIDERS: PCP Family Medicine; Visit Provider Family Medicine
DX: R26.9 Unspecified abnormalities of gait and mobility (principal); R53.1 Weakness; Z51.89 Encounter for other specified aftercare
CPT/HCPCS: 97110; 97112; 97116; 97161

== ENCOUNTER 2024-09-24 13:25 | Outpatient (CLI) | payer MEDICARE, SELFPAY ==
--- NOTE | 2024-09-24 14:00 | CRLHL7_ITS ---
For Patients: As a result of the Century Cures Act, medical imaging exams and procedure reports are released immediately into your electronic medical record. You may view this report before your referring provider. If you have questions, please contact your health care provider. Indication: Pulmonary nodule, follow-up, history of colon cancer. Technique: Noncontrast CT of the chest with multiplanar reconstruction utilizing bone and soft tissue algorithms. Comparison: CT chest studies dated 02/29/2024 and 12/25/2023. Findings: Lungs: Stable 7 mm left lower lobe subpleural pulmonary nodule (series 3, image 82). Unchanged right lower lobe subpleural reticular opacities, likely postinfectious/inflammatory. Pleura: Clear. Heart and mediastinum: No cardiomegaly. No abnormal pericardial fluid collection. Scattered coronary artery calcifications. Moderate atherosclerotic calcification of the thoracic aorta. Upper abdomen: Small sliding hiatal hernia. Partially imaged exophytic right upper pole renal cyst. Musculoskeletal: No lytic or blastic lesion. Moderate thoracic spondylosis with diffuse idiopathic skeletal hyperostosis. Impression: 1. Stable 7 mm left lower lobe subpleural pulmonary nodule, indeterminate, but favored to be postinfectious in etiology. 2. Unchanged additional right lower lobe subpleural reticular opacities, likely also postinfectious/inflammatory. Please note that all CT scans at this facility use dose modulation, iterative reconstruction, and/or weight-based dosing when appropriate to reduce radiation dose to as low as reasonably achievable. Dictated by Jose L Pedraza MD @ 09/28/2024 9:18:07 PM (Electronically Signed)
== END 2024-09-24 13:26 | disposition home or self-care (01) ==
LOC: CT 13:26
PROVIDERS: PCP Family Medicine; Visit Provider Family Medicine
DX: R91.1 Solitary pulmonary nodule (principal)
CPT/HCPCS: 71250

== ENCOUNTER 2024-11-01 09:05 | Outpatient (CLI) | payer MEDICARE, SELFPAY | END 2024-11-01 09:06 | disposition home or self-care (01) | LOC: NFLDREF 11-06 11:11 | PROVIDERS: PCP Family Medicine; Referring Provider Family Medicine; Visit Provider Family Medicine | DX: R97.20 Elevated prostate specific antigen [PSA] (principal); N40.0 Benign prostatic hyperplasia without lower urinary tract symptoms; E78.5 Hyperlipidemia, unspecified; Z12.5 Encounter for screening for malignant neoplasm of prostate | CPT/HCPCS: 80053; 80061; G0103 ==

== ENCOUNTER 2024-11-07 10:30 | Outpatient (RCR) | payer MEDICARE, SELFPAY ==
--- NOTE | 2024-09-04 09:39 | PT.OPE ---
PT [facility] PT [facility] Eval Start: 09/03/24 12:39 Freq: Status: Active Protocol: Document 09/03/24 16:31 CJT (Rec: 09/03/24 16:31 CJT [email or web address]) E-signed By You Chawla PT Physical Therapy Outpatient Evaluation Insurance Information Recert Due Date 12/02/24 Insurance Name Medicare B Medical Diagnosis R53.1 - Weakness R26.9 - Impaired gait Treating Diagnosis R53.1 - Weakness R26.9 - Impaired gait Referring Hansel Roman Subjective Preferred Name Harvinder Subjective Pt presents 3 months post-op L4-5 laminectomy (DOS: 06/02) secondary to osteomyelitis of same vertebral level . This was an emergent procedure. Pt spent 9 weeks on antibiotics via pick line in [place] and returned to [place] following this course of antibiotics. Pt and his Kathrine report that he has lost significant strength in his core, legs, and arms while recuperating from this procedure. Pt had several falls in the first two weeks of his procedure - no injuries. This prompted pt to use a walker for ambulation which was helpful. He has since been using a cane when needed, but will often carry it when he feels his balance is adequate. Pt would like to improve his strength and ability to walk so that he may remain as functional as possible. Pain Comments 05/06 Date of Surgery (If 06/02/24 applicable) Current Work Status Retired Precautions Therapy Limitations/ Not Limited Systems Review Objective Other/Pertinent R hip flexion: 3+/5 Objective R knee flexion: 4/5 R knee extension: 4/5 R ankle DF: 4+/5 L hip flexion: 3+/5 L knee flexion: 4/5 L knee extension: 4/5 L ankle DF: 4/5 4-Stage Balance Test Stage I (NBOS): normal Stage II (in-step): normal Stage III (tandem): unable to maintain stance >5 seconds Stage IV (single leg): unable Timed Up and Go (TUG): 13.6 seconds TUG cognitive: 15.4 seconds 5 Times Cqe-lu-Mfilj: 16.9 seconds 30-Second Ycs-yp-Nadmp: 9 reps Assessment Assessment/ Harvinder is a very pleasant 83 year old Male who presents Impression to our clinic for evaluation and treatment of generalized weakness and impaired gait following an L4- 5 laminectomy on 06/02/24. Pt is now 12 weeks post-op and his restrictions are lessened. He does have generalized weakness throughout his LEs and core and demonstrates weakness and impaired balance with each of today's functional strength and endurance tests. I do think a walking program would be helpful for him to regain endurance in the muscles of his low back and legs and will discuss this in detail with he and his when he returns. We will also attempt a 6-minute walk-test to establish his baseline, but I do not expect him to be able to complete this test currently, as he was only able to ambulate for 4.5 minutes total when I evaluated Harvinder after a hospital stay in February of this year. Pt and his understand that return to normal strength and functional ability after this procedure will be a long process, but are committed to attending PT consistently and working on an exercise program at home. The nature of the pts condition was explained and all questions were answered to the pts satisfaction. Skilled PT services are medically necessary to address deficits and return patient to highest level of function. Recommend physical therapy sessions 2/week for 4-8 weeks. Pt agrees with this plan . Printout of HEP was given for I completion and pt gives verbal understanding of each exercise. Primary Functional Walking, transfers, bed mobility, stairs Limitations Plan of Care Rehabilitation Good Potential Physical Therapy STG - To be completed in 4 weeks: Goals 1. Pt will improve 30 second Sit to Stand test score to 12 repetitions as indication of improved functional strength and balance to reduce risk of falls. 2. Pt will improve TUG score to 12 seconds or less as indication of improved functional strength and balance to reduce risk of falls. LTG - To be completed in 8 weeks: 1. Pt to be I with HEP so that they may I manage progression of symptoms. 2. Pt will demo ability to stand Tandem, without use of hands, for at least 30 seconds as indication of improved static balance to reduce risk of falls. 3. Pt will demo ability to ambulate for at least 6 consecutive minutes as indication of improve muscular endurance in his legs and low back, so that he may go for short walks with his to maintain his physical health. 4. Pt will demo ability to I roll from side to side on bed so that he may shift positions in the night while sleeping without assistance. Treatment Plan/ Electrical Stimulation,Gait Training,Heat,Ice/Cold/ Direct Interventions Vasopneumatic,Joint Mobilization,Manual Therapy, Neuromuscular Re-ed,Self-Care/Home Management, Therapeutic Activities,Therapeutic Exercises Frequency/Duration 2/week for 4-8 weeks Patient Will Be Completion of LTG(s),Skills Plateau,Independent w/HEP, Discharged From Independently Progressing Therapy Evaluation Billing Untimed Code 50 Treatment Minutes PT Eval No Charge No Complexity Moderate Certification Information Initial 09/03/24 Certification Date Ending Certification 12/02/24 Date Provider Signature Yes Required Provider Signature POC & Medical Necessity Shows Agreement With Physician NPI Number Write NPI# Here Physician Comment/ : Change Physician Signature Please Sign/Date Here & Date Requested
--- NOTE | 2024-10-03 12:42 | PT.OPDN ---
PT [facility] Out[facility] Daily Note PT [facility] Outpatient Daily Note Start: 09/03/24 12:39 Freq: Status: Active Protocol: Document 10/03/24 11:09 CJT (Rec: 10/03/24 12:41 CJT [email or web address]) E-signed By You Chawla, PT PT [facility] Daily Progress Note Visit Information Note Type Recert/Progress Note Visit Number 9 Physician Authorized eval and treat Visits Insurance Information Recert Due Date 12/02/24 Insurance Name Medicare B Medical Diagnosis R53.1 - Weakness R26.9 - Impaired gait Treating Diagnosis R53.1 - Weakness R26.9 - Impaired gait Referring Hansel Roman Subjective Preferred Name Harvinder Subjective Pt doing fair. Reports that he has not been doing exercises at home and his has been giving him a hard time about this. Going to the track tonight to walk with her. Pain Comments 05/06 Date of Surgery (If 06/02/24 applicable) Home Exercise Home Exercise Access Code: [email or web address] Comments URL: [email or web address] Date: 09/03/2024 Prepared by: You Chawla Exercises - Reclined Single Knee to Chest Stretch - 1-3 x daily - 7 x weekly - 1 sets - 45-60 seconds hold - Sit to Stand with Armchair - 3 x daily - 7 x weekly - 2 sets - 5-10 reps - Supine Bridge - 1 x daily - 7 x weekly - 2 sets - 10 reps Objective Other/Pertinent 4-Stage Balance Test Objective Stage I (NBOS): normal Stage II (in-step): normal Stage III (tandem): pt able to maintain 10 seconds bilaterally Stage IV (single leg): unable to balance longer than 3 seconds on either leg Timed Up and Go (TUG): 11.1 seconds (previous: 13.6 seconds) 5 Times Ftc-dt-Pktbc: 14.0 seconds (previous: 16.9 seconds) 30-Second Bet-rz-Kvwvh: 11 reps (previous: 9) Functional Test 6-minute walk test: 956 ft (Age related norm: 5102-3291 Performed & Score ft) 886ft today Patient Instructed Yes in Risks/Benefits Therapeutic Exercise Therapeutic Exercise 30 Minutes (minutes) Therapeutic Exercise NuStep - 5 minutes, level 5 : To Restore Gastroc stretch on slant board x 60 Functional Status Sit to stands x 12 Lumbar extension machine: 70# x 12, 80# x 15 Leg Press, seat 13, 80# 3 x 8, 10, 11 Supine piriformis stretch x 60 ea Hooklying figure-4 stretch x 60 ea Supine HS stretch x 60 ea Seated quad stretch x 60 ea Manual Therapy Techniques Manual Therapy 20 Minutes (minutes) Manual Therapy MFR with Tigertail to BILATERAL quad, VMO, ITB, Techniques adductor bundle, hamstring, gastroc, and soleus to diminish adhesions and improve tissue extensibility. STM to BILATERAL thoracic and lumbar paraspinals, QL, iliolumbar ligament, gluteus minimus, gluteus medius, piriformis to reduce tissue tension and improve extensibility. CFM to scar tissue to diminish adhesions. Treatment Minutes Timed Code Treatment 50 Minutes Total Treatment Time 50 Billing Units Manual Therapy Units 1 Therapeutic Exercise 2 Units Assessment/Impression Assessment/ Harvinder has made fair progress during his time in PT thus Impression far. Pt is demonstrating improved functional strength and endurance with 5 ties sit to stand and 30-second sit to stand testing. He is also demonstrating improved static and dynamic balance with ability to perform tandem stance >10 seconds either direction and a TUG score of less than 12 seconds today. Harvinder's walking endurance was not good today, however. He did not walk as far as he had previously and required 2 standing rest breaks to catch his breath. Moving forward, we will continue to prioritize his walking endurance, balance and of course continue strengthening his lumbar spine and core which is also seeing excellent improvements. Recommend continued PT services to address deficits and return pt to highest level of function. Primary Functional Walking, transfers, bed mobility, stairs Limitations Plan of Care Physical Therapy STG - To be completed in 4 weeks: Goals 1. Pt will improve 30 second Sit to Stand test score to 12 repetitions as indication of improved functional strength and balance to reduce risk of falls. 2. Pt will improve TUG score to 12 seconds or less as indication of improved functional strength and balance to reduce risk of falls. MET LTG - To be completed in 8 weeks: 1. Pt to be I with HEP so that they may I manage progression of symptoms. 2. Pt will demo ability to stand Tandem, without use of hands, for at least 30 seconds as indication of improved static balance to reduce risk of falls. 3. Pt will demo ability to ambulate for at least 6 consecutive minutes as indication of improve muscular endurance in his legs and low back, so that he may go for short walks with his to maintain his physical health. 4. Pt will demo ability to I roll from side to side on bed so that he may shift positions in the night while sleeping without assistance. Daily Plan of Care Continue per POC
== END 2024-11-25 10:32 | disposition home or self-care (01) ==
PROVIDERS: PCP Family Medicine; Visit Provider Family Medicine
DX: R53.1 Weakness (principal); R26.9 Unspecified abnormalities of gait and mobility; Z51.89 Encounter for other specified aftercare
CPT/HCPCS: 71250; 97110; 97140; 97162; 97530

== ENCOUNTER 2024-12-16 06:23 | Outpatient (CLI) | payer MEDICARE, SELFPAY ==
--- NOTE | 2024-12-16 08:00 | P.ANES_ITS ---
Anesthesia Charges Start Date/Time Anesthesia Start Date: 12/16/24 Anesthesia Start Time: 07:19 Stop Date/Time Anesthesia Stop Date: 12/16/24 Anesthesia Stop Time: 07:58 Summary Extremes of Age - Over 70 or under 1: CLINICAL INFORMATICS STRATEGIST Coding CPT Codes CPT Codes: ANES LWR INTST NDSC NOS - [id number] ([id number]) QK - MACHINE CARTON MARKER 2-4 CNCRNT ANES PROC, QX - CLINICAL INFORMATICS STRATEGIST SVC W/ MD MED DIRECTION, P2 - PATIENT W/MILD SYST DISEASE Additional Codes: Summary - Extremes of Age - Over 70 or under 1: CLINICAL INFORMATICS STRATEGIST ([id number])
--- NOTE | 2024-12-16 08:00 | W.ANESCHARGE ---
Anesthesia Charges Start Date/Time Anesthesia Start Date: 12/16/24 Anesthesia Start Time: 07:19 Stop Date/Time Anesthesia Stop Date: 12/16/24 Anesthesia Stop Time: 07:58 Summary Extremes of Age - Over 70 or under 1: ARBORICULTURE INSTRUCTOR Coding CPT Codes CPT Codes: ANES LWR INTST NDSC NOS - [id number] ([id number]) QK - PERSONAL LINES AGENT 2-4 CNCRNT ANES PROC, QX - ARBORICULTURE INSTRUCTOR SVC W/ MD MED DIRECTION, P2 - PATIENT W/MILD SYST DISEASE Additional Codes: Summary - Extremes of Age - Over 70 or under 1: ARBORICULTURE INSTRUCTOR ([id number])
--- NOTE | 2024-12-16 09:56 | W.ANESCHARGE ---
Anesthesia Charges Start Date/Time Anesthesia Start Date: 12/16/24 Anesthesia Start Time: 07:19 Stop Date/Time Anesthesia Stop Date: 12/16/24 Anesthesia Stop Time: 07:58 Summary Extremes of Age - Over 70 or under 1: MDA Coding CPT Codes CPT Codes: ANES LWR INTST NDSC NOS - [id number] ([id number]) QK - MANUFACTURING CONTROLS ENGINEER 2-4 CNCRNT ANES PROC, QX - PHARMACY CARE COORDINATOR SVC W/ MD MED DIRECTION, P2 - PATIENT W/MILD SYST DISEASE Additional Codes: Summary - Extremes of Age - Over 70 or under 1: TRACY ([id number])
== END 2024-12-16 06:24 | disposition home or self-care (01) ==
LOC: OP CLINIC 06:24
PROVIDERS: PCP Family Medicine; Visit Provider Surgery
DX: Z12.11 Encounter for screening for malignant neoplasm of colon (principal); Z85.038 Personal history of other malignant neoplasm of large intestine; Z15.09 Genetic susceptibility to other malignant neoplasm; D12.4 Benign neoplasm of descending colon; D12.5 Benign neoplasm of sigmoid colon; Z98.0 Intestinal bypass and anastomosis status; K57.30 Diverticulosis of large intestine without perforation or abscess without bleeding
CPT/HCPCS: 00811; 45380; 45385; 88305; 99100; J2704